=== PATIENT | female | born 1930 | race Caucasian/White ===

== ENCOUNTER 2017-10-26 08:06 | Inpatient (IN) | payer MEDICARE, OTHER ==
[~2017-10-26] VITALS: Ht 170.2 cm; Wt 78.9 kg
[2017-10-26] VITALS (8 sets, daily range): BP systolic 145–192; BP diastolic 60–91
[~2017-10-26 08:06] MED LIST: ACETAMINOPHEN-1 EAC1 PO; AMLODIPINE BESY10 MG PO; ARICEPT 5 MG TAB5 MG PO; ASPIRIN81 M2 PO; AZITHROMYCIN 2250 MG PO; B2; CARAFATE 1 GM TA1 GM PO; CARBINOXAMINE MA4 MG PO; CATAPRES-TTS 10.1 MG PO; CATAPRES0.1 MG PO; CELEBREX 200 M200 M1 PO; CEPHALEXIN 500500 M3 PO; CLONIDINE HCL0.2 M2 PO; CLONIDINE0.1; CLONIDINE0.1 PO; COLACE100 MG PO; COUMADIN 2.5MG2.5 M1; COUMADIN 2.5MG2.5 M1 PO; COUMADIN 5 MG TA5 M1; FELODIPINE ER2.5 MG; INDAPAMIDE2.5 MG PO; IRON325 PO; ISOSORBIDE DINI20 M1 PO; JANTOVEN5 MG PO; KLOR-CON 1010 MEQ PO; LASIX 20 MG TAB20 MG; LASIX 40 MG TAB40 M2 PO; LEXAPRO 10 MG T10 M1 PO; LIPITOR20 MG PO; MAGNESIUM400 MG PO; MAGOX 400400 MG PO; MINOCIN100 MG PO; MIRALAX17 GM PO; MIRALAX255 GM PO; NORVASC 2.5 MG2.5 M1 PO; NORVASC5 MG PO; PALGIC; PANTOPRAZOLE SO40 M1 PO; PAROXETINE 20 MG PO; PREDNISONE 10 M10 MG PO; PROTONIX40 M1 PO; PROTONIX40 M2 PO; REMERON15 MG PO; SPIRONOLACTONE25 M1; SYSTANE 0.3-0.1 EACH OPHTHALMIC; VITAMIN B-12500 MCG PO; VITAMIN D2000 UNI1 PO; XANAX; XANAX 0.5 MG0.5 M1 PO; XANAX1 MG PO; XYZAL5 MG PO; ZANTAC 150MG T150 MG PO
[2017-10-26] MEDS ORDERED: COUMADIN 5 MG TA5 M1 PO (08:19)
[2017-10-26] MEDS ORDERED: OXYBUTYNIN 5 MG5 M2 PO (08:19)
[2017-10-26] MEDS ORDERED: ACETAMINOPHEN-1 EAC1 PO (08:20)
[2017-10-26] MEDS ORDERED: IRON325 PO (08:20)
[2017-10-26] MEDS ORDERED: VITAMIN D3400 UNIT PO (08:20)
[2017-10-26] MEDS ORDERED: OMEPRAZOLE40 MG PO (08:22)
[2017-10-26] MEDS ORDERED: XANAX1 MG PO (08:22)
[2017-10-26] MEDS ORDERED: DOK100 MG PO (08:22)
[2017-10-26] MEDS ORDERED: PRILOSEC 20 MG20 MG PO (08:22)
[2017-10-26] MEDS ORDERED: GAS-X125 M1 PO (08:23)
[2017-10-26] MEDS ORDERED: ZANTAC 150MG T150 MG PO (08:23)
[2017-10-26] MEDS ORDERED: TUMS PO (08:23)
[2017-10-26 08:28] LABS: ABSOLUTE BASOPHILS 0.1 thou/uL (0.0-0.2); ABSOLUTE EOSINOPHILS 0.1 thou/uL (0.0-0.7); ABSOLUTE MONOCYTES 0.5 thou/uL (0.0-1.2); ABSOLUTE NEUTROPHILS 2.6 thou/uL (1.6-8.1); EOSINOPHILS 2.2 %; HEMATOCRIT 41.5 % (37.0-47.0); HEMOGLOBIN 13.9 gm/dL (12.0-15.0); LYMPHOCYTES 37.7 %; MCH 34.4 pg (26.0-34.0); MCHC 33.5 g/dL (28.0-37.0); MCV 102.7 fL (80.0-100.0); MONOCYTES 9.2 %; MPV 7.3 fl. (7.2-11.1); NUCLEATED RBCS 0 /100WBC; PLATELET COUNT* 187 thou/uL (150-400); POLYS 49.9 %; RBC 4.04 mil/uL (4.20-5.00); RDW-CV 12.7 % (10.5-14.5); WBC 5.2 thou/uL (4.0-11.0)
[2017-10-26 08:35] LABS: ANION GAP 5 mmol/L (7-16); BUN 15 mg/dL (7-18); CHLORIDE 98 mmol/L (98-107); CO2 31 mmol/L (21-32); GLUCOSE 100 mg/dL (70-99); POTASSIUM 3.1 mmol/L (3.5-5.1); SODIUM 134 mmol/L (136-145)
[2017-10-26 08:38] LABS: APTT 42.2 Seconds (25.0-31.3); INR 2.7; PROTIME 27.3 Seconds (9.20-11.50)
[2017-10-26 08:53] LABS: ALBUMIN 3.9 g/dL (3.4-5.0); ALKALINE PHOSPHATASE 100 U/L (46-116); CK-MB MASS 0.5 ng/mL (<0.5-3.6); LIPASE 61 U/L (73-393); MAGNESIUM 1.7 mg/dL (1.8-2.4); NT-PRO BRAIN NAT PEPTIDE 2866 pg/mL (<300); SGOT 23 U/L (15-37); SGPT 21 U/L (30-65); TOTAL BILIRUBIN 0.6 mg/dL (<0.1-1.0); TOTAL PROTEIN 8.1 g/dL (6.4-8.2); TROPONIN-I LEVEL <0.06 ng/mL (<0.06)
[2017-10-26 10:23] LABS: CALCIUM 9.1 mg/dL (8.5-10.1); POTASSIUM 3.9 mmol/L (3.5-5.1)
--- NOTE | 2017-10-26 16:34 | 2DMMODE ---
[place] [address] 2 D/M-MODE ECHOCARDIOGRAM Name: QIANA BLANCO Room: [address] IN [facility]#: [id number] Admission: 10/26/17 Attend Phys: Adelso Chow Discharge: Date of : 34 Date of Service: 10/26/17 1634 Report #: [id number] THIS REPORT FOR: //name// APPROVED REPORT Study performed: 10/26/2017 15:41:15 EXAM: Comprehensive 2D, Doppler, and color-flow Echocardiogram Patient Location: In-Patient Room #: [facility] Status: routine BSA: 1.90 HR: 60 bpm BP: 179/76 mmHg Rhythm: NSR Other Information Study Quality: Good Indications Congestive Heart Failure Pacemaker Chest Pain 2D Dimensions LVEF(%): 48.52 (>50%) IVSd: 10.43 (7-11mm) LVOT Diam: 22.28 (18-24mm) LVDd: 54.34 mm PWd: 9.78 (7-11mm) Ascending Ao: 33.83 (22-36mm) LVDs: 40.91 (25-40mm) Aortic Root: 29.96 mm Chávez's LVEF: 48.52 % Volumes Left Atrial Volume (Systole) LA ESV Index: 67.50 mL/m2 Aortic Valve AoV Peak Slade.: 1.99 m/s AO Peak Gr.: 15.89 mmHg LVOT Max P.07 mmHg AO Mean Gr.: 7.80 mmHg LVOT Mean P.90 mmHg LVOT Max V: 1.01 m/s AO V2 VTI: 39.93 cm LVOT Mean V: 0.62 m/s DARVIN (VTI): 2.08 cm2 LVOT V1 VTI: 21.34 cm AI [place]: 2.11 m/s2 [place] [address] 2 D/M-MODE ECHOCARDIOGRAM Name: QIANA BLANCO Room: [address] IN .R.#: [id number] Admission: 10/26/17 Attend Phys: Adelso Chow Discharge: Date of : 34 Date of Service: 10/26/17 1634 Report #: [id number] AI PHT: 556.88 ms Mitral Valve MV Decel. Time: 208.90 ms MV PHT: 60.58 ms MVA (PHT): 3.63 cm2 TDI Medial E' Slade.: 0.08 m/s Lateral E' Slade.: 0.10 m/s Pulmonary Valve PV Peak Slade.: 0.88 m/s PV Peak Gr.: 3.13 mmHg Tricuspid Valve RAP Estimate: 5.00 mmHg TR Peak Gr.: 29.43 mmHg RVSP: 34.43 mmHg PA Pressure: 34.43 mmHg Left Ventricle The left ventricle is normal size. There is normal LV segmental wall motion. Paradoxical septal motion consistent with paced rhythm. Moderate concentric left ventricular hypertrophy. Left ventricular systolic function is mildly decreased. LVEF is 50%. The left ventricular diastolic function is normal. Right Ventricle The right ventricle is normal size. The right ventricular systolic function is normal. Pacemaker lead is present in the right ventricle. Atria Left atrium is severely dilated. Right atrium is dilated. Aortic Valve Mild aortic valve sclerosis. Mild aortic regurgitation. Mild aortic stenosis. Mitral Valve There is mitral annular calcification. Mild mitral regurgitation. No evidence of mitral valve stenosis. Tricuspid Valve The tricuspid valve is normal in structure. Mild tricuspid regurgitation. Mild pulmonary hypertension[place] [address] 2 D/M-MODE ECHOCARDIOGRAM Name: QIANA BLNACO Room: [address] IN [facility]#: [id number] Admission: 10/26/17 Attend Phys: Adelso Chow Discharge: Date of : 34 Date of Service: 10/26/17 1634 Report #: [id number] The pulmonary valve is normal in structure. Trace pulmonic regurgitation. Great Vessels The aortic root is normal in size. IVC is dilated and collapses <50% with inspiration. Pericardium There is no pericardial effusion. <Conclusion> LVEF is 50%. Moderate concentric left ventricular hypertrophy. There is normal LV segmental wall motion. There is normal LV segmental wall motion. Paradoxical septal motion consistent with paced rhythm. Mild aortic stenosis. Mild aortic regurgitation. Mild mitral regurgitation. <ELECTRONICALLY SIGNED> By: Eligio Eagle MD, FACC 10/26/17 1634 1634 1634 Eligio Eagle MD, FACC /INF
--- NOTE | 2017-10-26 16:48 | EKG ---
[place] [address] ELECTROCARDIOGRAM REPORT Name: QIANA BLANCO Room: [address] ADM IN M.R.#: [id number] Admission: 10/26/17 Attend Phys: Adelso Weathers, Discharge: Date of : 32 Report #: [id number] THIS REPORT FOR: //name// [facility] ED Test Date: 2017-10-26 Test Time: 08:11:00 Pat Name: QIANA BLANCO Department: Room: [facility] Gender: F Jack Winder: Rosa M CHRISTIE : 1930 Requested By: Gallo Shaikh Order Number: [id number] MD: Eligio Eagle Measurements Intervals [place] Rate: 67 P: CO: QRS: 1 QRSD: 102 T: -69 QT: 448 QTc: 473 Interpretive Statements Afib/flut and V-paced complexes No further rhythm analysis attempted due to paced rhythm LVH with secondary repolarization abnormality Prolonged QT interval Compared to ECG 12/22/2014 06:24:08 Prolonged QT interval now present Electronically Signed On 10-26-2017 16:48:00 CDT by Eligio Eagle [email or web address] <ELECTRONICALLY SIGNED> By: Eligio Eagle MD, FAC 10/26/17 1648 08 0811 Eligio Eagle MD, FAC /EPI
[2017-10-27] VITALS: BP 116/54; BP 127/62
[2017-10-27 04:00] VITALS: BP 157/78
[2017-10-27 04:52] LABS: HEMATOCRIT 37.3 % (37.0-47.0); HEMOGLOBIN 12.5 gm/dL (12.0-15.0); MCH 34.7 pg (26.0-34.0); MCHC 33.6 g/dL (28.0-37.0); MCV 103.4 fL (80.0-100.0); MPV 7.4 fl. (7.2-11.1); RBC 3.61 mil/uL (4.20-5.00); RDW-CV 12.6 % (10.5-14.5); WBC 6.2 thou/uL (4.0-11.0)
[2017-10-27 05:09] LABS: ALBUMIN 3.2 g/dL (3.4-5.0); ALKALINE PHOSPHATASE 85 U/L (46-116); ANION GAP 1 mmol/L (7-16); BUN 18 mg/dL (7-18); CALCIUM 8.8 mg/dL (8.5-10.1); CHLORIDE 101 mmol/L (98-107); CO2 36 mmol/L (21-32); GLUCOSE 96 mg/dL (70-99); MAGNESIUM 1.6 mg/dL (1.8-2.4); POTASSIUM 3.4 mmol/L (3.5-5.1); SGOT 17 U/L (15-37); SGPT 18 U/L (30-65); SODIUM 138 mmol/L (136-145); TOTAL BILIRUBIN 0.4 mg/dL (<0.1-1.0); TOTAL PROTEIN 6.7 g/dL (6.4-8.2); TROPONIN-I LEVEL <0.06 ng/mL (<0.06)
[2017-10-27 08:00] VITALS: BP 152/71
[2017-10-27 13:01] VITALS: BP 136/64
[2017-10-27 16:00] VITALS: BP 140/93
[2017-10-27 20:00] VITALS: BP 168/80
[2017-10-28] VITALS: BP 138/69
[2017-10-28 04:00] VITALS: BP 131/64
[2017-10-28 04:46] LABS: HEMATOCRIT 36.3 % (37.0-47.0); HEMOGLOBIN 12.3 gm/dL (12.0-15.0); MCH 34.6 pg (26.0-34.0); MCHC 33.8 g/dL (28.0-37.0); MCV 102.4 fL (80.0-100.0); MPV 7.4 fl. (7.2-11.1); RBC 3.54 mil/uL (4.20-5.00); RDW-CV 12.9 % (10.5-14.5); WBC 5.4 thou/uL (4.0-11.0)
[2017-10-28 05:07] LABS: CALCIUM 8.6 mg/dL (8.5-10.1); CREATININE 1.1 mg/dL (0.6-1.3); MAGNESIUM 1.5 mg/dL (1.8-2.4)
[2017-10-28 08:00] VITALS: BP 160/70
[2017-10-28 12:28] VITALS: BP 135/60
[2017-10-28 16:02] VITALS: BP 138/60
[2017-10-28 16:36] LABS: INR 1.9; PROTIME 19.5 Seconds (9.20-11.50)
[2017-10-28 20:00] VITALS: BP 142/74
[2017-10-29] VITALS: BP 136/68
[2017-10-29 04:00] VITALS: BP 150/76
[2017-10-29 07:59] VITALS: BP 150/73
[2017-10-29 11:52] VITALS: BP 134/71
[2017-10-29 16:00] VITALS: BP 127/58
--- NOTE | 2017-10-29 16:21 | CARDNUC ---
[place] [address] CARDIAC NUCLEAR IMAGING REPORT Name: QIANA CARTER Room: [address] IN [facility]#: [id number] Admission: 10/26/17 Attend Phys: Adelso Chow Discharge: Date of : 34 Date of Service: 10/29/17 1620 Report #: [id number] THIS REPORT FOR: //name// APPROVED REPORT Study performed: 10/27/2017 09:19:00 Indication: Chest pain, Palpitations Patient Location: In-Patient Room #: [facility] Stress Tech: Pau Massey Stress Nurse: Sneha Watters RN Ht: 5 ft 7 in Wt: 171 lbs BSA: 1.89 m2 BMI: 26.77 Medical History Medical History: Chest pain, SSS, Stroke/TIA, CKD, HTN Medications: Clonidine, Norvasc, Cozaar Allergies: Sulfa ABT, MG OX, Doxycycline, Donepezil Cardiac Risk Factors: Age, HTN, FHX of CAD Previous Cardiac Procedures: NONE Pretest Chest Pain Characteristics: No chest pain Exercise History: Sedentary Physical Disabilities: Generalized weakness, fall risk, cane. Resting Data Rest SPECT myocardial perfusion imaging was performed in supine position 30 minutes following the intravenous injection of 11.0 mCi of Tc-99m Sestamibi. Time of rest injection: 12:00 The images were gated to evaluate regional wall motion and calculate left ventricular ejection fraction. Administration Route: IV Administration Site: Left Hand Pharmacologic Stress Pharmacologic stress test was performed by injecting Regadenoson 0.4 mg IV push over 10-15 seconds immediately followed by the intravenous injection of 35.7 mCi of Tc-99m Sestamibi. Time of stress injection: 13:40 Administration Route: IV Administration Site: Left Hand Heart Rate at time of stress injection: 62 [place] [address] CARDIAC NUCLEAR IMAGING REPORT Name: QIANA CARTER Room: [address] IN ..#: [id number] Admission: 10/26/17 Attend Phys: Adelso Chow Discharge: Date of : 34 Date of Service: 10/29/17 1620 Report #: [id number] Gated Stress SPECT was performed 40 minutes after stress injection. The images were gated to evaluate regional wall motion and calculate left ventricular ejection fraction. Stress Test Details Stress Test: Pharmacologic stress testing performed using 0.4 mg of regadenoson per 5 mL given IV over 10 seconds. Reason for pharmacologic stress test: physical limitation. HR Max Heart Rate (APMHR): 135 bpm Resting HR: 60 bpm Target HR (85% APMHR): 114 bpm Max HR Achieved: 62 bpm % of APMHR: 45 Recovery HR: 66 bpm BP Resting BP: 124/61 mmHg Recovery BP: 141/72 mmHg ECG Resting ECG: atrial fibrillation, left ventricular hypertrophy with repolarization abnormalities and occasional ventricular pacing Stress ECG: atrial fibrillation, left ventricular hypertrophy with repolarization abnormalities and occasional ventricular pacing ST Change: None Arrhythmia: None Recovery ECG: atrial fibrillation, left ventricular hypertrophy with repolarization abnormalities and occasional ventricular pacing Recovery ST Change: None Recovery Arrhythmia: None Clinical Reason for Termination: Completed protocol Stress Symptoms: Chest tightness, upper left arm pain 3/10. Exercise duration: 0 min 0 sec Exercise capacity: 1.00 METs Nurse Comments Pt reported chest tightness and left arm discomfort during test, Dr. Brandon notified and he responded and saw Pt and EKG. Test continued. Pt required extra time and caffeine but symptoms resolved [place] [address] CARDIAC NUCLEAR IMAGING REPORT Name: QIANA CARTER Room: [address]#: [id number] Admission: 10/26/17 Attend Phys: Adelso Chow Discharge: Date of : 32 Date of Service: 10/29/17 1620 Report #: [id number] Stress ECG Conclusion The baseline 12-lead EKG shows atrial fibrillation. There is occasional ventricular pacing noted. [place] complexes showed left ventricular hypertrophy with T-wave inversion consistent with repolarization abnormality. There were no stress-induced related changes noted. Study Quality Study: Good Artifact: Mild Breast artifact Study Data At rest, the left ventricular ejection fraction was 48%.. Post stress, the left ventricular ejection was 53%.. TID = 0.96. Perfusion Perfusion images obtained at rest show mild photopenia in the anterior wall likely due to breast attenuation artifact. Post stress perfusion images show uniform uptake of the radioisotope throughout the myocardium. There were no defects that would suggest infarct or ischemia. Wall Motion Normal left ventricular wall motion. Nuclear Conclusion ECG Findings: non-diagnostic Clinical Findings: equivocal Nuclear Findings: negative for ischemia Exercise Capacity: not assessed Left Ventricular Function: normal Risk Study: low Perfusion images show no defect to suggest infarct or ischemia. Left ventricular systolic motion appears normal. This is a low risk study. Niki is Dr. Mendieta: Testicular take care of Mr. HakeemJ Alex Carter stress test was normal <Conclusion> The baseline 12-lead EKG shows atrial fibrillation. There is occasional ventricular pacing noted. [place] complexes showed left ventricular hypertrophy with T-wave [place] [address] CARDIAC NUCLEAR IMAGING REPORT Name: QIANA CARTER Room: [address] IN M.R.#: [id number] Admission: 10/26/17 Attend Phys: Adelso Chow Discharge: Date of : 34 Date of Service: 10/29/17 1620 Report #: [id number] repolarization abnormality. There were no stress-induced related changes noted. <ELECTRONICALLY SIGNED> By: Del Mendieta MD, FACC 10/29/171619 19 19 Del Mendieta MD, FACC /INF
[2017-10-29] MEDS ORDERED: CLARITIN10 MG PO (16:29)
[2017-10-29] MEDS ORDERED: COZAAR 25 MG TA25 M1 PO (16:30)
--- NOTE | 2017-11-04 13:03 | CON ---
[address] [address] CONSULTATION Name: QIANA BLANCO Room: [address] IN M.R.#: [id number] Admission: 10/26/17 Attend Phys: Adelso Weathers, Discharge: 10/29/17 Date of : 32 Report #: [id number] THIS REPORT FOR: //name// CC: Adelso Carrillo INPATIENT CONSULTATION PRIMARY ENERGY CONSERVATION REPRESENTATIVE: Sumeet Brandon M.D., [facility]. PRIMARY CARE DOCTOR: Yamil Carrillo M.D. CHIEF COMPLAINT: Chest pressure and shortness of breath. HISTORY OF PRESENT ILLNESS: The patient is an 87-year-old woman who was seen in our practice for atrial arrhythmias and a permanent pacemaker, has had 2 discrete episodes of chest pressure, was associated with feelings of shortness of breath at nighttime. She had another episode this morning and had to go to the Emergency Room to get it checked out. Her episode lasts anywhere from 5-30 minutes long, and it is associated with some bilateral shoulder discomfort. It is not necessarily exertional. She also admits to having weight gain, probably 3-4 pounds over the last several days. She is anticoagulated with warfarin and presents with a therapeutic INR. She is on this because of prior history of CVA and in the setting of atrial fibrillation. She has a history of GERD, but denies any GI bleeding, symptoms of hematemesis, melena or abdominal pain. She presents mildly hypertensive. PAST MEDICAL HISTORY: She has a history of permanent pacemaker implanted in 2012, a [employer] device. She has a single-chamber device. She is in permanent AFib. She has a history of prior remote CVA. She is fully anticoagulated with warfarin. She has a history of hypertension. She was evaluated with an MPI in 2014, which was negative for ischemia. She has GERD, followed by Dr. Erickson. She has anxiety. MEDICATIONS: Her home medications include the following: Tylenol p.r.n., Xanax p.r.n., amlodipine 5 mg daily, calcium carbonate, vitamin B12, Lexapro 10 mg daily, iron, Lasix 20 mg daily, Remeron daily, omeprazole 40 mg daily, potassium chloride 20 mEq daily, ranitidine and other supplements and warfarin 5 [place] [address] CONSULTATION Name: FRANCISQIANA Pham Room: [address]#: [id number] Admission: 10/26/17 Attend Phys: Adelso Weathers, Discharge: 10/29/17 Date of : 32 Report #: [id number] REVIEW OF SYSTEMS: GASTROINTESTINAL: No hematemesis or melena. GENITOURINARY: No dysuria or hematuria. PULMONARY: Denies any cough. GENERAL: No fevers or chills. CARDIOVASCULAR: Positive chest pressure. Positive dyspnea with exertion. Positive orthopnea. Positive PND. MUSCULOSKELETAL: Positive edema. No falls. NEUROLOGIC: No seizures. EYES: Denies any blurred vision or loss of vision. THROAT: Denies any dysphagia. PHYSICAL EXAMINATION: VITAL SIGNS: As above, she presented hypertensive. Her blood pressure is in the 180s over 70s systolic, pulse is in the 60s, V paced. Oxygen saturation on 2 liters is 96%. GENERAL: This is a pleasant elderly female. She is somewhat of a poor historian, but she is in no apparent distress. HEENT: Eyes, EOMs intact. No facial asymmetry. NECK: Supple. No jugular venous distention. CARDIOVASCULAR EXAMINATION: Regular. I cannot hear a murmur, rub or gallop. LUNGS: There are bilateral rales. ABDOMEN: Nontender. EXTREMITIES: There is 1+ pretibial edema bilaterally. SKIN: Warm and dry. PSYCHIATRIC: The patient has appropriate mood and affect. NEUROLOGIC: There are no focal deficits. RADIOGRAPHIC DATA: Electrocardiogram demonstrates atrial fibrillation underlying in a V-paced rhythm. Hemoglobin is 13.9, white blood count is 5.2 and platelet count is 187,000. Sodium is 136, potassium is 3.9, chloride is 100, BUN is 16 and creatinine is 1.0. INR is 2.7. Chest x-ray shows cardiomegaly and mild right infrahilar density, most likely atelectasis. IMPRESSION AND PLAN: 1. Acute diastolic congestive heart failure. I will place her on IV diuretics. We will continue with aggressive blood pressure management. We will check an echocardiogram to reassess LV function. Historically, it has been normal. 2. Atrial fibrillation/atrial flutter. She is on a rate control strategy and we will continue with current medical therapy. 3. Sick sinus syndrome, status post permanent pacemaker. She has had recent device checks and it appears to be functioning normally. 4. Oral anticoagulation, adequate. She has a history of cerebrovascular accident and remains a high stroke risk with a CHADS-VASc score of over [address] [address] CONSULTATION Name: QIANA BLANCO Room: [address] IN .R.#: [id number] Admission: 10/26/17 Attend Phys: Adelso Weathers, Discharge: 10/29/17 Date of : 32 Report #: [id number] she will continue with warfarin inpatient. 5. Hypertension. We will titrate her medications. <ELECTRONICALLY SIGNED> By: Del Mendieta MD, FACC 11/04/17 1303 1138 [id number] Eagle MD, FACC /nt
== END 2017-10-29 18:32 | DRG 291 ==
LOC: M.ERS 08:06 → M.TBA-ER 09:07 → M.2W 09:07
PROVIDERS: Family Medicine; ADMIT Family Medicine
DX: I13.0 Hypertensive heart and chronic kidney disease with heart failure and stage 1 through stage 4 chronic kidney disease, or unspecified chronic kidney disease (principal); J15.9 Unspecified bacterial pneumonia; I50.31 Acute diastolic (congestive) heart failure; I48.92 Unspecified atrial flutter; J98.11 Atelectasis; I16.0 Hypertensive urgency; I20.9 Angina pectoris, unspecified; N18.9 Chronic kidney disease, unspecified; I35.0 Nonrheumatic aortic (valve) stenosis; F41.9 Anxiety disorder, unspecified; E83.42 Hypomagnesemia; D53.9 Nutritional anemia, unspecified; E87.6 Hypokalemia; K21.9 Gastro-esophageal reflux disease without esophagitis; I48.91 Unspecified atrial fibrillation; I49.5 Sick sinus syndrome; E78.5 Hyperlipidemia, unspecified; Z95.0 Presence of cardiac pacemaker; Z86.73 Personal history of transient ischemic attack (TIA), and cerebral infarction without residual deficits; Z90.49 Acquired absence of other specified parts of digestive tract; Z79.01 Long term (current) use of anticoagulants; Z79.899 Other long term (current) drug therapy; Z88.2 Allergy status to sulfonamides; Z88.8 Allergy status to other drugs, medicaments and biological substances; Z82.49 Family history of ischemic heart disease and other diseases of the circulatory system

== ENCOUNTER 2017-11-13 17:58 | Inpatient (IN) | payer MEDICARE, OTHER ==
[~2017-11-13] VITALS: Ht 170.2 cm; Wt 83.0 kg
[~2017-11-13 17:58] MED LIST changes: +CLARITIN10 MG PO; +COUMADIN 5 MG TA5 M1 PO; +COZAAR 25 MG TA25 M1 PO; +DOK100 MG PO; +GAS-X125 M1 PO; +OMEPRAZOLE40 MG PO; +OXYBUTYNIN 5 MG5 M2 PO; +PRILOSEC 20 MG20 MG PO; +TUMS PO; +VITAMIN D3400 UNIT PO
[2017-11-13 18:05] VITALS: BP 167/71
[2017-11-13] MEDS ORDERED: JANTOVEN1 MG PO (18:14)
[2017-11-13] MEDS ORDERED: LASIX 20 MG TAB20 MG PO (18:19)
[2017-11-13] MEDS ORDERED: TYLENOL EXTRA500 MG PO (18:20)
[2017-11-13 18:27] LABS: ABSOLUTE EOSINOPHILS 0.1 thou/uL (0.0-0.7); ABSOLUTE LYMPHOCYTES 2.3 thou/uL (0.8-5.3); ABSOLUTE MONOCYTES 0.7 thou/uL (0.0-1.2); ABSOLUTE NEUTROPHILS 3.3 thou/uL (1.6-8.1); BASOPHILS 0.6 %; EOSINOPHILS 2.1 %; HEMOGLOBIN 11.6 gm/dL (12.0-15.0); LYMPHOCYTES 35.9 %; MCH 34.1 pg (26.0-34.0); MCHC 33.2 g/dL (28.0-37.0); MCV 102.8 fL (80.0-100.0); MONOCYTES 10.5 %; MPV 7.6 fl. (7.2-11.1); NUCLEATED RBCS 0 /100WBC; PLATELET COUNT* 179 thou/uL (150-400); POLYS 50.9 %; RBC 3.41 mil/uL (4.20-5.00); RDW-CV 12.5 % (10.5-14.5); WBC 6.5 thou/uL (4.0-11.0)
[2017-11-13 18:33] LABS: ANION GAP 3 mmol/L (7-16); BUN 15 mg/dL (7-18); CALCIUM 8.6 mg/dL (8.5-10.1); CHLORIDE 97 mmol/L (98-107); CO2 32 mmol/L (21-32); CREATININE 1.2 mg/dL (0.6-1.3); GLUCOSE 102 mg/dL (70-99); POTASSIUM 3.7 mmol/L (3.5-5.1); SODIUM 132 mmol/L (136-145)
[2017-11-13 18:35] LABS: APTT 41.1 Seconds (25.0-31.3); INR 1.7; PROTIME 16.9 Seconds (9.20-11.50)
[2017-11-13 18:49] LABS: ALBUMIN 3.8 g/dL (3.4-5.0); ALKALINE PHOSPHATASE 121 U/L (46-116); CK-MB MASS 0.5 ng/mL (<0.5-3.6); LIPASE 49 U/L (73-393); NT-PRO BRAIN NAT PEPTIDE 4449 pg/mL (<300); SGOT 25 U/L (15-37); SGPT 36 U/L (30-65); TOTAL BILIRUBIN 0.4 mg/dL (<0.1-1.0); TOTAL PROTEIN 7.6 g/dL (6.4-8.2); TROPONIN-I LEVEL <0.06 ng/mL (<0.06)
[2017-11-13 19:42] VITALS: BP 141/60
[2017-11-13 20:00] VITALS: BP 138/70
[2017-11-13 23:55] VITALS: BP 114/51
[2017-11-14] VITALS (7 sets, daily range): BP systolic 123–164; BP diastolic 49–70
[2017-11-14 04:56] LABS: MCH 34.7 pg (26.0-34.0); MCHC 33.4 g/dL (28.0-37.0); MCV 103.8 fL (80.0-100.0); MPV 7.5 fl. (7.2-11.1); RBC 3.18 mil/uL (4.20-5.00); RDW-CV 12.5 % (10.5-14.5); WBC 4.3 thou/uL (4.0-11.0)
--- NOTE | 2017-11-14 05:00 | NUR ---
PT ADMITTED ON TELE FLOOR AR AROUND 1930. ACCOMPANIED KASSIDY NURSE ON A STRETCHER. ALERT AWAKE ORIENTED X4 , V PACED ON THE COMPANY DOCTOR. O2 2 L NC , SATURATION IS 97%. PT COMPLAINS OF GENERALIZED PAIN , CODEINE ADMINISTERED ALONG WITH OTHER MED. IV LINE IN LEFT A.C IS PATENT. PT MADE COMFORTABLE. SHE IS NPO AFTER MIDNIGHT FOR CARDIO CONSULT. CARDIO WAS CONTACTED BY CHARGE NURSE FOR CONSULT, MESSAGE WAS LEFT TO ANSWERING SERVICE. ADMISSION HISTORY DONE BY CHARGE NURSE WELL ORDERS. ASSESSEMENT WAS PERFORMED AT BEDSIDE. PT ABLE TO AMBULATE WITH ASSIST TO THE BEDSIDE COMMODE WHERE SHE URINATES. WHEN ASKED ABOUT HER ADVANCE DIRECTIVE ORIENTATION. PT STATES THAT SHE WANTS TO BE DNR. ENCOURAGE TO HAVE HER BRING SINGED PAPER PROOF TO KEEP IN HER CHART. LEGS ARE SWOLLEN, ANS WARM. ERYTHMA IN DRAGAN LOWER EXTREMITIES. RIGHT LEGT APPEARS TO BE MORE SWOLLEN AND PAINFUL. SCANT AMOUNT OF YELLOW DRAINAGE , MORE LIKE A SWEATING APPEARANCE IS SEEN IN RIGHT CALF. WOUND CARE CONSULTED. PICTURES TAKEN AND PLACED IN CHART. LEGS ARE ELEVATED ON PILLOWS. MRSA SWAB PERFORMED WELL AMAEROBIC / AEROBIC CULTURES OF HTE VESCILES PERTAINIG TO RIGHT CALF. NO SCD IS PLACED SINCE WANT TO RULE OUT VTE. PT SLEPT WELL. CALL LIGHT AT REACH. WILL CONTINUE TO MONITOR.
[2017-11-14 05:15] LABS: INR 1.8; PROTIME 18.8 Seconds (9.20-11.50)
[2017-11-14 05:34] LABS: CREATININE 1.1 mg/dL (0.6-1.3); MAGNESIUM 1.8 mg/dL (1.8-2.4); POTASSIUM 3.2 mmol/L (3.5-5.1)
--- NOTE | 2017-11-14 06:36 | NUR ---
MRSA SWAB AND ANAEROBIC/AEROBIC CULTURE COLLECTED AND SENT TO LAB
--- NOTE | 2017-11-14 10:04 | EKG ---
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1930 Requested By: Gallo Shaikh Order Number: [id number] MD: Sumeet Brandon Measurements Intervals [place] Rate: 61 P: 139 FL: 82 QRS: -4 QRSD: 113 T: -66 QT: 494 QTc: 498 Interpretive Statements Ventricular-paced complexes atrial fibrillation left ventricular hypertrophy with repolarization Compared to ECG 10/26/2017 08:11:00 no change Electronically Signed On 11-14-2017 10:04:43 CDT by Sumeet Brandon [email or web address] <ELECTRONICALLY SIGNED> By: Sumeet Brandon MD, [facility] 11/14/17 1004 181 11 Sumeet Brandon MD, [facility] /EPI
--- NOTE | 2017-11-14 10:27 | NUR ---
WOUND CARE NOTE: CONSULT RECEIVED FOR RIGHT LEG CELLULITIS, COMPRESSION. PATIENT PRESENTS WITH RED, HOT TO TOUCH, INFLAMMED AREA TO RIGHT LOWER LEG AT GAITER AREA. DRY, SCABBED AREAS, BELIEVE THESE WERE WEEPING BEFORE. LEFT LEG WITH SLIGHT REDNESS AT GAITER AREA TOO. PALPABLE PEDAL PULSES BILATERALLY. CLEANSED BILATERAL LEGS WITH SOAP AND WATER, PATTED DRY. APPLIED LOTION. MEASURED FOR SIZE F TUBIGRIPS, 34.5 CM AT CALF BILATERALLY. APPLIED DOUBLE LAYER TUBIGRIP. PATIENT TOLERATED WELL. EDUCATED PATIENT ON COMPRESSION THERAPY TO ASSIST WITH HEALING CELLULITIS, COMMUNICATED UNDERSTANDING. RECOMMEND ELEVATE BLE DOUBLE LAYER TUBIGRIP TO BILATERAL LOWER EXTREMITIES
--- NOTE | 2017-11-14 12:30 | NUR ---
MET WITH PT AND SPOUSE TO DISCUSS DC PLANS. PT KNOWN TO CM FROM PREVIOUS HOSPITAL STAY. PT LIVES WITH SPOUSE. SHE JUST DC'D FROM [facility] 2 DAYS PRIOR TO ADMIT. STATED SHE WAS DOING WELL WHEN SHE WENT HOME AND THERAPY HAD 'DONE ALL THEY COULD' SHE WAS AMBULATING WELL AND ABLE TO DO HER OWN ADLS. SHE HAS [facility] HOME [facility] AND WOULD LIKE TO CONTINUE WITH THEM AT DC, CONFIRMED WITH [facility] THERE. THEY WILL NEED NEW ORDERS AT DC. SPOUSE VOICED CONCERN THAT THIS INFECTION BE 'HEALED UP' BEFORE SHE GOES HOME. CM TO FOLLOW
--- NOTE | 2017-11-14 13:12 | NUR ---
ASSUMED CARE OF PATIENT THIS AM AT 0730. PATIENT IS ALERT AND ORIENTED X 4. SHE C/O BILATERAL BELOW THE KNEE PAIN. PATIENT MEDICATED FOR PAIN PER ROUTINE SCHEDULE. PATIENT HAS BEEN ASSISTED UP TO THE BSC FREQUENTLY THROUGHOUT THE DAY. DR VILLEGAS IN TO SEE PATIENT AND ORDERS WERE WRITTEN. MEDICATION ORDERS CHANGED. PATIENT STARTED ON A DIET. TELE MONITOR SHOWS V PACED RHYTHM. WOUND CARE IN TO SEE PATIENT AND RECOMMENDATIONS DISCUSSED. 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 PATIENT ASSISTED UP IN THE CHAIR FOR LUNCH. PATIENT IS PROGRESSING TOWARDS GOALS. NO FALLS OR INJURY.
--- NOTE | 2017-11-14 18:50 | CON ---
[address] [address] CONSULTATION Name: QIANA BLANCO Room: [address] IN M.R.#: [id number] Admission: 11/13/17 Attend Phys: Mann Miranda MD Discharge: Date of : 34 Report #: [id number] THIS REPORT FOR: //name// CC: Mann Carrillo MD DATE OF SERVICE: 11/14/2017 HISTORY OF PRESENT ILLNESS: The patient is an 87-year-old white female who I was asked to see in the hospital today after she was noted to have swollen feet. The history is obtained from the patient as well as some old records. The patient has a long history of hypertension. Previous heart catheterization in 1998 showed normal coronary arteries. She has a history of permanent atrial fibrillation. She apparently was cardioverted years ago, but had recurrent AFib, it was decided aim for rate control only. She has been chronically anticoagulated. She was actually admitted here to [facility] in 2012 when I saw her in consultation. She had a syncopal spell. She was noted to have slow rates of AFib with pauses. I then implanted a single lead pacemaker. She has had no further syncope. She has remained chronically anticoagulated. She was actually just admitted here to [facility] on 10/26/2017 with chest pressure and shortness of breath. She was seen by my partner, Dr. Eagle. She underwent a nuclear stress test 2 weeks ago that showed no reversible defects or ischemia, ejection fraction 53%. It was felt her chest pressure was noncardiac. Echocardiogram 2 weeks ago showed ejection fraction 50%, left ventricular hypertrophy, mild aortic stenosis, and mild mitral regurgitation. The patient was discharged to [facility]. In the [place], she had increasing swelling of her ankles. Her right lower rodriguez was noted to have redness and warmth. She is felt to have cellulitis. She was admitted to the hospital yesterday for further evaluation and treatment. She has had no trauma to her leg. PAST MEDICAL HISTORY: Significant for previous back surgery, lens implant, cholecystectomy, hysterectomy, appendectomy, hypertension. CURRENT MEDICATIONS: Consist of Xanax, amlodipine, clonidine, furosemide, losartan, Remeron, Prilosec, oxybutynin, potassium, ranitidine, warfarin. ALLERGIES: She has no known drug allergies. FAMILY HISTORY: Heart disease runs in the family. SOCIAL HISTORY: She is . She and her live in [place]. No smoking. Rarely drinks alcohol. REVIEW OF SYSTEMS: She apparently had a stroke in the past with some aphasia and right-sided weakness. She has no history of asthma, [place] [address] CONSULTATION Name: QIANA BLANCO Room: [address] IN .R.#: [id number] Admission: 11/13/17 Attend Phys: Mann Miranda MD Discharge: Date of : 32 Report #: [id number] Does have a history of anemia. No history of liver disease, kidney disease, cancer, or psychiatric illness. PHYSICAL EXAMINATION: GENERAL: Revealed an elderly female lying in bed. She appeared in no distress. VITAL SIGNS: Showed a blood pressure of 140/70, pulse 60. She is afebrile. HEENT: She was anicteric, conjunctiva pink. Mucous membranes moist. NECK: Veins nondistended. CHEST: Clear to auscultation. CARDIAC: Regular rate and rhythm, grade 2 systolic ejection murmur. ABDOMEN: Soft. EXTREMITIES: Had pitting edema up to mid tibial area. Dorsalis pedis pulse 2+ bilaterally. SKIN: She had erythema on the right anterior tibial area. It was slightly warm to touch. LABORATORY DATA: Her workup so far, ECG shows what appears to be atrial fibrillation with a paced rhythm. Sodium 140, potassium 3.2, creatinine 1.1. Liver function studies are normal. BNP 4449. Her INR is 1.8. White blood cell count 4.3, hemoglobin 11. IMPRESSION AND RECOMMENDATIONS: 1. Edema. Suspect venous insufficiency. I would recommend IV Lasix. Possibly exacerbated by amlodipine. I would recommend switching from amlodipine to an SHAWN inhibitor for her high blood pressure. 2. Hypertension. The patient has been on clonidine and amlodipine. 3. Cellulitis. 4. Sick sinus syndrome. The patient 100% ventricular paced. 5. Atrial fibrillation. The patient is chronically anticoagulated. I would continue anticoagulation, maintain an INR of 2-3. 6. Previous stroke. <ELECTRONICALLY SIGNED> By: Sumeet Brandon MD, [facility] 11/14/17 1850 0933 [id number] Brandon MD, FACC /nt
[2017-11-15 04:00] VITALS: BP 142/51
[2017-11-15 05:15] LABS: INR 1.9; PROTIME 18.9 Seconds (9.20-11.50)
[2017-11-15 05:19] LABS: HEMATOCRIT 32.1 % (37.0-47.0); HEMOGLOBIN 10.8 gm/dL (12.0-15.0); MCH 34.8 pg (26.0-34.0); MCHC 33.7 g/dL (28.0-37.0); MCV 103.3 fL (80.0-100.0); MPV 7.9 fl. (7.2-11.1); RBC 3.1 mil/uL (4.20-5.00); RDW-CV 12.5 % (10.5-14.5); WBC 4.6 thou/uL (4.0-11.0)
[2017-11-15 05:22] LABS: CALCIUM 8.7 mg/dL (8.5-10.1); CREATININE 1.1 mg/dL (0.6-1.3); MAGNESIUM 1.5 mg/dL (1.8-2.4)
[2017-11-15 05:26] LABS: POTASSIUM 4.4 mmol/L (3.5-5.1)
--- NOTE | 2017-11-15 06:19 | NUR ---
ASSUMED PT CARE REPORT RECEIVED FROM NURSE. PT IS ALERT AWAKE ORIENTED X4. V PACED WITH AFIB ON THE LEAD MILITARY ANALYST. PT DID COMPLAIN OF PAIN AND HER SCHEDULED CODEINE WAS GIVEN. K REPLACEMENT GIVEN. K THIS AM IS NORMAL. MAG LEVEL IS 1.5 . FIRST DOSE OF MAG REPLACEMENT ADMINISTERED. PT STATES " SHE HAD A GOOD NIGHT OF SLEEP". IV ABX GIVEN THROUGHOUT THE NIGHT. TURBIGRIP WRAPPED AROUND DRAGAN LOWER EXTRMITIES. LEGS ARE KEPT ELEVATED. PT GETS UP A FEW TIME TO USE THE BEDSIDE COMMODE. CALL LIGHT AT REACH. BED IN LOWEST POSITION
[2017-11-15 07:41] VITALS: BP 135/61
--- NOTE | 2017-11-15 09:55 | NUR ---
ASSUMED CARE OF PT THIS AM AROUND 0715- KENNEL AIDE IN PLACE ORDERED, V-PACED WITH BBB- UPON ASSESSMENT PT NOTED TO BE RESTING IN BED- PT A&O X4- CONTINENT OF BOWEL AND BLADDER- ASSIST X1 WITH TRANSFERS- LCTA, RESP EVEN AND UN-LABORED- VSS, O2 SAT 92% ON RA- ABDOMEN SOFT/ROUND/NON-TENDER, BS X4 QUADS-LAST BM REPORTED 11/13/17- +1 BLE EDEMA NOTED, LEG ELEAVTION ENCOURAGED- BLE CLEANED WITH WARM H20 AND SOAP, PATTED DRY WITH LOTION APPLIED ANDN TUB TUNA PURSE SEINER INDICATED- PT UP TO BED SIDE RECLINER THIS AM, GOOD PO INTAKE NOTED THIS AM WITH BREAKFAST- IV NOTED TO RIGHT AC INTACT AND SL- MG THIS AM NOTED TO BE 1.5 WITH 1ST DOSE REPLACEMENT REPORTED TO HAVE BEEN GIVEN ON PRIOR SHIFT WITH 2ND DOSE GIVEN THIS AM AT 0911 WITH REDRAW SCHEDULED FOR 1315 THIS SHIFT- PT DENIES ANY C/O PAIN/DISCOMFORT AT THIS TIME- CALL LIGHT AND PERSONAL BELONGINGS WITH IN REACH- HOURLY ROUNDS IN PLACE R/T SAFETY/NEEDS- ALL NEEDS MET AT THIS TIME-[facility]
[2017-11-15 12:00] VITALS: BP 100/54
[2017-11-15 16:00] VITALS: BP 110/51
--- NOTE | 2017-11-15 17:57 | NUR ---
PT CURRENLTY RESTING IN BED- CASTING SORTER IN PLACE ORDERED, V-PACED- IV TO RIGHT AC INTACT- MG NOTED TO BE 1.6 POST PO REPLACEMENT THIS SHIFT AT 1315- IV REPLACEMENT GIVEN WITH REDRAW AT 1715 NOTED TO BE 2.1- PT UP TO CHAIR WITH MEALS, GOOD PO INTAKE NOTED WITH MEALS- DENIES ANY C/O PAIN/DISCOMFORT AT THIS TIME- ALL NEEDS MET AT THIS TIME-[facility]
[2017-11-15 20:05] VITALS: BP 142/74
[2017-11-15 23:36] VITALS: BP 133/63
--- NOTE | 2017-11-15 23:50 | NUR ---
ASSUMED CARE OF PT AT 1900. PT IS ALERT AND ORIENTED. VSS. PERRLA. NO COMPLAINTS OF PAIN. UP WITH 1 ASSIST. PT IS V PACED ON THE TELEMETRY. PT IS RESTING COMFORTABLY IN BED. RESPIRATIONS ARE EVEN AND NONLABORED. WILL CONTINUE TO MONITOR PT.
[2017-11-16 03:55] VITALS: BP 123/52
[2017-11-16 04:42] LABS: INR 1.8; PROTIME 18.7 Seconds (9.20-11.50)
[2017-11-16 08:00] VITALS: BP 128/55
[2017-11-16 12:02] VITALS: BP 111/51
--- NOTE | 2017-11-16 14:23 | NUR ---
CONTINUE TO FOLLOW, WAS ASKED TO MEET WITH SPOUSE THIS AM IN ADMISSIONS. MET WITH HIM, HE ASKED ABOUT 'PLACEMENT' FOR PT. STATES 'SHE WON'T DO ANYTHING AT HOME.' ASSURED HIM THAT SHE HAD PARTICIPATED IN THERAPY. HE STATES SHE WAS AT THE [facility] NOT LONG AGO AND STAYED 5 MONTHS BUT CAME HOME D/T FINANCES. HE STATES HE HAS AN APPT WITH AN ELDER LAW DIET CONSULTANT TO DISCUSS FINANCES AND IS INTERESTED IN FINDING [facility] FOR . DISCUSSED SOME WITH HIM. HE SEEMED SOMEWHAT DISTRACTED. EXPLAINED TO HIM THAT PT WOULD NOT QUALIFY TO RETURN TO SNF AT THIS TIME, TOO HIGH FUNCTIONING. OFFERED NAMES OF PENITENTIARY AND HE STATED 'I'LL JUST FIGURE IT OUT.' IS AGREEABLE TO , UPDATED YESICA/FERNAND[facility] AT HOME THAT PT WILL RETURN HOME TOMORROW. WILL ASK FOR SW TO SEE PT AT HOME AND GIVE SPOUSE 'A PLACE FOR MOM' CONTACT AT [place] ALSO
[2017-11-16 16:00] VITALS: BP 133/52
--- NOTE | 2017-11-16 18:43 | NUR ---
PATIENT RESTING IN BED. UP IN ROOM WITH STANDBY ASSISTANCE AND WALKER USAGE. HOURY ROUNDING COMPLETED FOR PATINET SAFETY AND PATINET IS PROGRESSING TOWARDS GOALS. EXPECTED DISCHARGE IN 24 TO 48 HOURS TO SELF CARE AT [facility].
[2017-11-16 20:00] VITALS: BP 145/57
[2017-11-17] VITALS: BP 93/56
--- NOTE | 2017-11-17 01:27 | NUR ---
PT ALERT ORIENTED. UP TO BR WITH STD BY ASSIST AND WALKER. 2300 TYLENOL WITH CODINE HELD DUE TO PT BEING SEDATED. TELEMETRY SHOWS V-PACED. WILL CONTINUE TO MONITOR.
[2017-11-17 04:00] VITALS: BP 148/70
[2017-11-17 06:03] LABS: ANION GAP < 0 mmol/L (7-16); BUN 16 mg/dL (7-18); CALCIUM 8.3 mg/dL (8.5-10.1); CHLORIDE 100 mmol/L (98-107); CO2 33 mmol/L (21-32); CREATININE 1.1 mg/dL (0.6-1.3); GLUCOSE 90 mg/dL (70-99); INR 1.7; POTASSIUM 4.2 mmol/L (3.5-5.1); PROTIME 17.6 Seconds (9.20-11.50); SODIUM 131 mmol/L (136-145)
[2017-11-17 08:00] VITALS: BP 134/60
--- NOTE | 2017-11-17 08:00 | NUR ---
AM ASSESSMENT COMPLETE, DEFER TO COMPUTER CHARTING. ICT DEVELOPMENT MANAGER TRACKING AFIB. ALERT ORIENTED. DENIES DIZZINESS, SHORTNESS OF BREATH OR ANY DISCOMFORT AT THIS TIME. REPORTING GOING HOME TODAY. CALL LIGHT WITHIN REACH. WILL CONTINUE TO MONITOR.
--- NOTE | 2017-11-17 10:26 | NUR ---
ORDERS NOTED FOR DC HOME WITH HH. CALLED AND FAXED ORDERS TO FERNANDO AT HOME. MET WITH PT AND SPOKE WITH SPOUSE OVER THE PHONE. HE WILL BE HERE AFTER LUNCH TO PICK HER UP.
[2017-11-17] MEDS ORDERED: CEFUROXIME250 MG PO (10:47)
[2017-11-17] MEDS ORDERED: CARVEDILOL3.125 MG PO (10:48)
[2017-11-17 12:18] VITALS: BP 135/53
--- NOTE | 2017-11-17 14:41 | NUR ---
DISCHARGE ORDERS RECEIVED. HEALTH INFORMATION MANAGER AND SALINE LOCK DC'D. EDUCATED ON DISCHARGE ORDERS, VERBALIZED UNDERSTANDING - GIVEN WRITTEN WRITTEN DISCHARGE INSTRUCTIONS FOR REINFORCEMENT TEACHING. ALL PERSONAL BELONGINGS COLLECTED BY PATIENT. DC'D VIA W/C WITH , IN STABLE CONDITION.
== END 2017-11-17 15:06 | disposition home health service (06) | DRG 603 ==
LOC: M.ERS 17:58 → M.TBA-ER 18:41 → M.2W 18:41
PROVIDERS: Family Medicine; ADMIT Internal Medicine
DX: L03.115 Cellulitis of right lower limb (principal); I50.42 Chronic combined systolic (congestive) and diastolic (congestive) heart failure; I13.0 Hypertensive heart and chronic kidney disease with heart failure and stage 1 through stage 4 chronic kidney disease, or unspecified chronic kidney disease; I48.91 Unspecified atrial fibrillation; E78.5 Hyperlipidemia, unspecified; I49.5 Sick sinus syndrome; N18.3 Chronic kidney disease, stage 3 (moderate); F41.8 Other specified anxiety disorders; K21.9 Gastro-esophageal reflux disease without esophagitis; Z87.81 Personal history of (healed) traumatic fracture; Z88.1 Allergy status to other antibiotic agents; Z88.2 Allergy status to sulfonamides; Z88.8 Allergy status to other drugs, medicaments and biological substances; Z86.73 Personal history of transient ischemic attack (TIA), and cerebral infarction without residual deficits; Z79.01 Long term (current) use of anticoagulants; Z90.49 Acquired absence of other specified parts of digestive tract; Z95.0 Presence of cardiac pacemaker; Z90.710 Acquired absence of both cervix and uterus; Z82.49 Family history of ischemic heart disease and other diseases of the circulatory system; Z79.899 Other long term (current) drug therapy; Z23 Encounter for immunization; Z66 Do not resuscitate

== ENCOUNTER 2018-04-18 16:03 | Inpatient (IN) | payer MEDICARE, OTHER ==
[~2018-04-18] VITALS: Ht 170.2 cm; Wt 73.0 kg
--- NOTE | ~2018-04-18 | PROC ---
[address] [address] PROCEDURE REPORT Name: QIANA BLANCO Room: [address] IN M.R.#: [id number] Admission: 04/18/18 Attend Phys: Maci Nichols Discharge: 04/24/18 Date of : 32 Report #: [id number] THIS REPORT FOR: //name// For GI report, please see the Provation report in Perceptive 7 content. By: 0640Medical Records Staff TIEN /TRUDY
[~2018-04-18 16:03] MED LIST changes: +CARVEDILOL3.125 MG PO; +CEFUROXIME250 MG PO; +JANTOVEN1 MG PO; +LASIX 20 MG TAB20 MG PO; +TYLENOL EXTRA500 MG PO
[2018-04-18 16:06] VITALS: BP 169/74
[2018-04-18] MEDS ORDERED: PROZAC 10 MG CA10 MG PO (16:20)
[2018-04-18] MEDS ORDERED: 24HR ALLERGY REL5 MG PO (16:21)
[2018-04-18 16:25] LABS: ABSOLUTE EOSINOPHILS 0.1 thou/uL (0.0-0.7); ABSOLUTE LYMPHOCYTES 1.6 thou/uL (0.8-5.3); ABSOLUTE MONOCYTES 0.7 thou/uL (0.0-1.2); ABSOLUTE NEUTROPHILS 2.9 thou/uL (1.6-8.1); BASOPHILS 0.9 %; EOSINOPHILS 2.5 %; HEMATOCRIT 37.2 % (37.0-47.0); HEMOGLOBIN 12.6 gm/dL (12.0-15.0); LYMPHOCYTES 29.6 %; MCH 34.3 pg (26.0-34.0); MCHC 33.8 g/dL (28.0-37.0); MCV 101.7 fL (80.0-100.0); MONOCYTES 12.3 %; MPV 7.3 fl. (7.2-11.1); NUCLEATED RBCS 0 /100WBC; PLATELET COUNT* 185 thou/uL (150-400); POLYS 54.7 %; RBC 3.66 mil/uL (4.20-5.00); RDW-CV 13.9 % (10.5-14.5); WBC 5.3 thou/uL (4.0-11.0)
[2018-04-18 16:38] LABS: ANION GAP 9 mmol/L (7-16); BUN 13 mg/dL (7-18); CALCIUM 9.1 mg/dL (8.5-10.1); CHLORIDE 98 mmol/L (98-107); CO2 31 mmol/L (21-32); CREATININE 1.1 mg/dL (0.6-1.3); GLUCOSE 120 mg/dL (70-99); POTASSIUM 3.2 mmol/L (3.5-5.1); SODIUM 138 mmol/L (136-145); TROPONIN-I LEVEL <0.06 ng/mL (<0.06)
[2018-04-18 16:40] LABS: ALBUMIN 3.8 g/dL (3.4-5.0); ALKALINE PHOSPHATASE 119 U/L (46-116); LIPASE 49 U/L (73-393); MAGNESIUM 1.6 mg/dL (1.8-2.4); NT-PRO BRAIN NAT PEPTIDE 4577 pg/mL (<300); SGOT 16 U/L (15-37); SGPT 20 U/L (30-65); TOTAL BILIRUBIN 0.4 mg/dL (<0.1-1.0); TOTAL PROTEIN 7.8 g/dL (6.4-8.2)
[2018-04-18 17:19] LABS: INR 2.4; PROTIME 24.5 Seconds (9.20-11.50)
[2018-04-18 19:50] VITALS: BP 150/80
[2018-04-18 20:00] VITALS: BP 122/82
[2018-04-18] MEDS ORDERED: POTASSIUM20 PO (21:49)
[2018-04-18] MEDS ORDERED: SYSTANE GEL EYE10 ML OPHTHALMIC (21:57)
[2018-04-18] MEDS ORDERED: TUMS X-STR300 MG PO (21:57)
[2018-04-18] MEDS ORDERED: TYLENOL EXTRA500 MG PO (21:58)
[2018-04-18 23:00] LABS: CALCIUM 9.5 mg/dL (8.5-10.1); CREATININE 1.1 mg/dL (0.6-1.3); POTASSIUM 3.1 mmol/L (3.5-5.1)
[2018-04-19] VITALS: BP 149/58
[2018-04-19 04:00] VITALS: BP 148/51
[2018-04-19 08:00] VITALS: BP 147/56
--- NOTE | 2018-04-19 10:09 | EKG ---
[place] [address] ELECTROCARDIOGRAM REPORT Name: QIANA BLANCO Room: [address] ADM IN M.R.#: [id number] Admission: 04/18/18 Attend Phys: Maci Nichols Discharge: Date of : 32 Report #: [id number] THIS REPORT FOR: //name// [facility] ED Test Date: 2018-04-18 Test Time: 16:07:32 Pat Name: QIANA BLANCO Department: Room: [facility] Gender: F Meat Washer: : 1930 Requested By: Yaneth Carrillo Order Number: [id number] MD: Sumeet Brandon Measurements Intervals [place] Rate: 74 P: RI: QRS: -16 QRSD: 106 T: -70 QT: 450 QTc: 500 Interpretive Statements Atrial fibrillation with occasional paced beat nonspecific t wave changes Borderline prolonged QT interval Compared to ECG 11/13/2017 18:12:08 no change Electronically Signed On 04-19-2018 10:08:58 PBX WIRE CHIEF by Sumeet Brandon [email or web address] <ELECTRONICALLY SIGNED> By: Sumeet Brandon MD, [facility] 04/19/18 1008 1607 1607 Sumeet Barndon MD, [facility] /EPI
[2018-04-19 11:49] VITALS: BP 164/62
--- NOTE | 2018-04-19 13:15 | 2DMMODE ---
[place] [address] 2 D/M-MODE ECHOCARDIOGRAM Name: QIANA BLANCO Room: [address] IN [facility]#: [id number] Admission: 04/18/18 Attend Phys: Elmer Edmonds Discharge: Date of : 34 Date of Service: 04/19/18 1315 Report #: [id number] THIS REPORT FOR: //name// APPROVED REPORT Study performed: 04/19/2018 10:53:46 EXAM: Comprehensive 2D, Doppler, and color-flow Echocardiogram Patient Location: In-Patient Room #: 229 Status: routine BSA: 1.92 HR: 60 bpm BP: 147/56 mmHg Rhythm: NSR Other Information Study Quality: Good Indications Dyspnea Pacemaker Chest Pain 2D Dimensions IVSd: 12.19 (7-11mm) LVOT Diam: 19.57 (18-24mm) LVDd: 48.88 mm PWd: 12.92 (7-11mm) Ascending Ao: 31.66 (22-36mm) LVDs: 37.58 (25-40mm) Aortic Root: 28.23 mm Volumes Left Atrial Volume (Systole) LA ESV Index: 63.90 mL/m2 Aortic Valve AoV Peak Slade.: 2.02 m/s AO Peak Gr.: 16.27 mmHg LVOT Max P.31 mmHg AO Mean Gr.: 9.04 mmHg LVOT Mean P.53 mmHg LVOT Max V: 0.91 m/s AO V2 VTI: 43.81 cm LVOT Mean V: 0.56 m/s DARVIN (VTI): 1.45 cm2 LVOT V1 VTI: 21.12 cm AI Edgar: 2.37 m/s2 AI PHT: 481.49 [place] [address] 2 D/M-MODE ECHOCARDIOGRAM Name: QIANA BLANCO Room: [address] IN .R.#: [id number] Admission: 04/18/18 Attend Phys: Elmer Edmonds Discharge: Date of : 32 Date of Service: 04/19/18 1315 Report #: [id number] Mitral Valve MV Decel. Time: 174.04 ms MV PHT: 50.47 ms MVA (PHT): 4.36 cm2 TDI Medial E' Slade.: 0.07 m/s Lateral E' Slade.: 0.12 m/s Pulmonary Valve PV Peak Slade.: 1.00 m/s PV Peak Gr.: 3.99 mmHg Tricuspid Valve RAP Estimate: 10.00 mmHg TR Peak Gr.: 28.97 mmHg RVSP: 39.00 mmHg PA Pressure: 39.00 mmHg Left Ventricle The left ventricle is normal size. There is normal LV segmental wall motion. Mild concentric left ventricular hypertrophy. Left ventricular systolic function is low normal LVEF is 50-55% The left ventricular diastolic function is normal. Right Ventricle Right ventricle is dilated. The right ventricular systolic function is normal. Pacemaker lead is present in the right ventricle. Atria Left atrium is severely dilated. Right atrium is dilated. Aortic Valve Moderate aortic valve sclerosis. Mild aortic regurgitation. There is no aortic valvular stenosis. Mitral Valve There is mitral annular calcification. Mild mitral regurgitation. No evidence of mitral valve stenosis. Tricuspid Valve The tricuspid valve is normal in structure. Mild tricuspid regurgitation. estimated pa pressure 40 mm Hg Pulmonic Valve The pulmonary valve is normal in structure. Mild [place] [address] 2 D/M-MODE ECHOCARDIOGRAM Name: QIANA BLANCO Room: [address] IN .R.#: [id number] Admission: 04/18/18 Attend Phys: Elmer Edmonds Discharge: Date of : 34 Date of Service: 04/19/18 1315 Report #: [id number] Great Vessels The aortic root is normal in size. IVC is dilated. Pericardium There is no pericardial effusion. <Conclusion> Mild concentric left ventricular hypertrophy. LVEF is 50-55% Left atrium is severely dilated. Moderate aortic valve sclerosis. Mild aortic regurgitation. Mild mitral regurgitation. Mild tricuspid regurgitation. estimated pa pressure 40 mm Hg <ELECTRONICALLY SIGNED> By: Sumeet Brandon MD, FACC 04/19/18 1315 1315 Sumeet Brandon MD, FACC /INF
[2018-04-19 15:39] VITALS: BP 138/61
[2018-04-19 20:00] VITALS: BP 131/57
[2018-04-20 00:45] VITALS: BP 131/56
[2018-04-20 04:55] VITALS: BP 135/63
[2018-04-20 05:41] LABS: CALCIUM 9.2 mg/dL (8.5-10.1); CREATININE 1.1 mg/dL (0.6-1.3); POTASSIUM 4.1 mmol/L (3.5-5.1)
[2018-04-20 08:00] VITALS: BP 149/56
[2018-04-20 11:52] VITALS: BP 136/60
--- NOTE | 2018-04-20 12:02 | EKG ---
[place] [address] ELECTROCARDIOGRAM REPORT Name: QIANA BLANCO Room: [address] ADM IN M.R.#: [id number] Admission: 04/18/18 Attend Phys: Maci Nichols Discharge: Date of : 32 Report #: [id number] THIS REPORT FOR: //name// [facility] Test Date: 2018-04-20 Test Time: 08:26:21 Pat Name: QIANA BLANCO Department: Room: [address] Gender: F Printer Slotter Helper: : 1930 Requested By: Elmer Edmonds Order Number: [id number] Reading MD: Eligio Eagle Measurements Intervals [place] Rate: 66 P: CA: QRS: -4 QRSD: 104 T: -76 QT: 475 QTc: 498 Interpretive Statements Afib/flut and V-paced complexes No further rhythm analysis attempted due to paced rhythm LVH with secondary repolarization abnormality Prolonged QT interval Compared to ECG 04/18/2018 16:07:32 Left ventricular hypertrophy now present Early repolarization now present T-wave abnormality no longer present Electronically Signed On 04-20-2018 12:02:24 HEAD BOYS TENNIS COACH by Eligio Eagle [email or web address] <ELECTRONICALLY SIGNED> By: Eligio Eagle MD, FACC 04/20/18 1202 5 5 Eligio Eagle MD, FAC /EPI
[2018-04-20 17:30] VITALS: BP 139/60
[2018-04-20 20:00] VITALS: BP 159/50
[2018-04-21] VITALS: BP 136/59; BP 139/55
[2018-04-21 05:00] VITALS: BP 151/58
[2018-04-21 08:00] VITALS: BP 159/64
[2018-04-21 12:15] VITALS: BP 145/78
--- NOTE | 2018-04-21 14:11 | EKG ---
[place] [address] ELECTROCARDIOGRAM REPORT Name: QIANA BLANCO Room: [address] ADM IN M.R.#: [id number] Admission: 04/18/18 Attend Phys: Maci Nichols Discharge: Date of : 32 Report #: [id number] THIS REPORT FOR: //name// [facility] Test Date: 2018-04-21 Test Time: 08:08:31 Pat Name: QIANA BLANCO Department: Room: [address] Gender: F Card Room Manager: : 1930 Requested By: Elmer Edmonds Order Number: [id number] Reading MD: Eligio Eagle Measurements Intervals [place] Rate: 60 P: 0 PA: 97 QRS: -65 QRSD: 186 T: 110 QT: 526 QTc: 526 Interpretive Statements Ventricular-paced complexes No further rhythm analysis attempted due to paced rhythm Left bundle branch block Compared to ECG 04/20/2018 08:26:21 Left bundle-branch block now present Atrial fibrillation no longer present Left ventricular hypertrophy no longer present Early repolarization no longer present Prolonged QT interval no longer present Electronically Signed On 04-21-2018 14:11:17 PERCUSSION TUNER by Eligio Eagle [email or web address] <ELECTRONICALLY SIGNED> By: Eligio Eagle MD, [facility] 04/21/18 1411 0808 0808 Eligio Eagle MD, [facility] /EPI
[2018-04-21 16:28] VITALS: BP 137/59
[2018-04-21 20:00] VITALS: BP 157/69
[2018-04-22] VITALS: BP 155/60
[2018-04-22 04:00] VITALS: BP 141/75
[2018-04-22 08:00] VITALS: BP 147/64
[2018-04-22 13:04] VITALS: BP 148/67
[2018-04-22 16:15] VITALS: BP 133/43
[2018-04-22 20:00] VITALS: BP 146/64
[2018-04-23] VITALS (8 sets, daily range): BP systolic 119–169; BP diastolic 53–71
[2018-04-23] MEDS ORDERED: PEPCID20 MG PO (07:54)
[2018-04-23 11:17] LABS: HEMATOCRIT 37.4 % (37.0-47.0); HEMOGLOBIN 12.6 gm/dL (12.0-15.0); MCHC 33.8 g/dL (28.0-37.0); MCV 100.7 fL (80.0-100.0); MPV 7.1 fl. (7.2-11.1); RBC 3.72 mil/uL (4.20-5.00); WBC 4.7 thou/uL (4.0-11.0)
[2018-04-23 11:22] LABS: INR 1.6; PROTIME 16.7 Seconds (9.20-11.50)
[2018-04-24 01:02] VITALS: BP 146/65
[2018-04-24 05:05] VITALS: BP 143/66
[2018-04-24 08:00] VITALS: BP 159/71
[2018-04-24 12:00] VITALS: BP 147/66
--- NOTE | 2018-04-24 12:35 | CON ---
[address] [address] CONSULTATION Name: QIANA BLANCO Room: [address] IN M.R.#: [id number] Admission: 04/18/18 Attend Phys: Maci Nichols Discharge: Date of : 32 Report #: [id number] THIS REPORT FOR: //name// CC: [place] Edmonds DATE OF SERVICE: 04/22/2018 REQUESTING PHYSICIAN: Dr. Elmer Edmonds. REASON FOR CONSULT: Noncardiac chest pain. HISTORY OF PRESENT ILLNESS: This is an 88-year-old female with history of gastroesophageal reflux disease who reports that for the past year, she has been taking Tums on a daily basis. She also reports dyspepsia, gas, bloating and abdominal pain. She takes Coumadin for history of AFib and since hospitalization, she was evaluated for cardiac event as she presented with chest pain. The patient denies any dysphagia, hematochezia, melena, but reports that occasionally may be constipated. PAST MEDICAL HISTORY: Significant for history of heart disease, CHF, AFib, gastroesophageal reflux disease, hypertension, anticoagulation therapy, depression. ALLERGIES: Significant to ARICEPT, DOXYCYCLINE, MAGNESIUM, SULFA. MEDICATIONS: Please refer to hospital MAR. SOCIAL HISTORY: The patient is and lives at home. Denies ever drinking or smoking. FAMILY HISTORY: Significant for coronary artery disease. PHYSICAL EXAMINATION: VITAL SIGNS: Reveals blood pressure of 146/64, respiration is 15, pulse 60, temperature 36.8 centigrade. LUNGS: Clear. CARDIOVASCULAR: Regular rate. ABDOMEN: Soft, tender to palpation in the epigastric region. Bowel sounds are positive. NEUROLOGIC: The patient is alert, oriented x 3. LABORATORY DATA: Reveal WBC of 4.7, hemoglobin 12.6 with platelet of 171. Sodium is 139, potassium 4.1, BUN is 13, creatinine 1.1. [place] [address] CONSULTATION Name: QIANA BLANCO Vero Room: [address]#: [id number] Admission: 04/18/18 Attend Phys: Maci Nichols Discharge: Date of : 32 Report #: [id number] all within normal limits. Lipase is 49. INR is 1.6. IMAGING: Chest x-ray was obtained on admission, which showed no acute cardiopulmonary process. ASSESSMENT AND PLAN: The patient with history of dyspepsia, gas, bloating and persistent gastroesophageal reflux symptoms. We will go ahead and perform an upper endoscopy. At some point, we will consider hydrogen breath test as her symptoms may be consistent with small intestinal bacterial overgrowth, which will make his reflux worse. I will make further recommendation based on his upper endoscopy. <ELECTRONICALLY SIGNED> By: Adeola Feliz MD 04/24/18 1235 1616 0042Fardanay Feliz MD /radha
--- NOTE | 2018-04-24 12:35 | CON ---
[address] [address] CONSULTATION Name: QIANA BLANCO Room: [address] IN M.R.#: [id number] Admission: 04/18/18 Attend Phys: Maci Nichols Discharge: Date of : 32 Report #: [id number] THIS REPORT FOR: //name// CC: [place] Edmonds DICTATED BY: Rachell Nation [facility] DATE OF SERVICE: 04/23/2018 Please note at the time of this dictation, the patient was seen and physically examined by myself. REASON FOR CONSULTATION: Epigastric to chest pain. HISTORY OF PRESENT ILLNESS: This is an 88-year-old female who presented to the Emergency Room with ongoing substernal chest tightness and epigastric pain, that she also noted some left arm pain, some shortness of air, and her heart was racing. She states this epigastric pain has been going on for about a year. She was scheduled to be seen in the office tomorrow as well. The patient was last seen by us in 2014 when she underwent an EGD and noted just to 2 cm hiatal hernia. Back in 2011, she had a Schatzki ring that was dilated and healed gastric ulcer had been noted. Prior to all that, the patient used to take lots of NSAIDs. She has not done, so she does take a lot of extra strength Tylenol, however, per her . Last colonoscopy was in 2011. She had a benign sigmoid polyp, otherwise essentially negative. ALLERGIES: INCLUDE SULFA, MAGNESIUM OXIDE, DOXYCYCLINE AND ARICEPT. MEDICATIONS: From home include oxybutynin, Xanax, Klor-Con, Coumadin, Norvasc, vitamin B12, Catapres, Xyzal, MiraLax, vitamin D, iron, docusate, Prilosec, ranitidine, warfarin, Lasix, extra strength Tylenol, Coreg, Prozac. PAST MEDICAL HISTORY: History of CVA; atrial fibrillation, on chronic anticoagulant therapy; hypertension; hyperlipidemia; GERD; chronic kidney disease. PAST SURGICAL HISTORY: Cholecystectomy, had a pacemaker in 2012. FAMILY HISTORY: Noncontributory. SOCIAL HISTORY: Lives at home with her . Denies any alcohol, tobacco or illegal drug use. REVIEW OF SYSTEMS: Twelve-point review [place] [address] CONSULTATION Name: QIANA BLANCO Room: [address]#: [id number] Admission: 04/18/18 Attend Phys: Maci Nichols Discharge: Date of : 32 Report #: [id number] except what is mentioned in the HPI. PHYSICAL EXAMINATION: VITAL SIGNS: Temperature 36.8, pulse 60, respirations 17, blood pressure 159/65. HEART: Slight irregular rate and rhythm. LUNGS: Clear, slightly diminished. ABDOMEN: Soft, positive bowel sounds in all 4 quadrants with some epigastric tenderness noted to palpation. LABORATORY DATA: Hemoglobin 12.6, hematocrit 5.3, platelets 185, GFR is 47. PT is 20, INR is 2. That was on 04/20/2018. IMPRESSION: 1. Epigastric pain. 2. History of gastric ulcer and a hiatal hernia. 3. Anticoagulant therapy secondary to atrial fibrillation and cerebrovascular accident. PLAN: 1. EGD today. 2. Recheck PT, INR and CBC at 11:00 today prior to procedure. Last dose of warfarin was Sunday evening. 3. Further recommendations to be made after the procedure has been performed. Thank you for allowing us to participate in this patient's care. Please do not hesitate to call with any questions in regard to this consult. <ELECTRONICALLY SIGNED> By: Adeola Feliz MD 04/24/18 1235 1042 0530Adeola Feliz MD /nt
[2018-04-24 15:47] VITALS: BP 163/66
[2018-04-24] MEDS ORDERED: PROTONIX40 M1 PO (16:04)
--- NOTE | 2018-04-26 12:05 | PATH ---
[facility] [address] [place] [address] PATHOLOGY RPT PROCEDURE Name: LIZ CARTER Room: [address] IN M.R.#: [id number] Admission: 04/18/18 Date of : 34 Discharge: 04/24/18 Report #: [id number] Path Case #: [id number] [facility] Accession Number: [id number] . 01 Material submitted: . GASTRIC BIOPSY . 01 Clinical history: . Rule out gastritis . 02 Diagnosis: Gastric biopsy: - Mild chronic and focal active gastritis suggesting reactive gastropathy (chemical gastritis), negative for Helicobacter pylori organisms, granulomas and dysplasia. (AINSLEY/db; 04/25/2018) LBQ/04/25/2018 . 02 Comment: Special stain: H. pylori immuno . 02 Electronically signed: . Rosalino Harrison MD, Pathologist NPI- [id number] . 01 Gross description: . The specimen is received in formalin, labeled "Liz Carter, gastric BX" and consists of 5 fragments of chowdary tissue measuring between 0.2 x 0.2 cm and 0.4 x 0.3 x 0.2 cm which are entirely submitted in A1. (SDY; 04/24/2018) SYU/SYU . 02 Pathologist provided ICD-10: K29.50 . 02 CPT . 319654, N06440 Specimen Comment: A courtesy copy of this report has been sent to Specimen Comment: [phone], , . Specimen Comment: Report sent to ,DR COLÓN / DR BLOUNT Specimen Comment: A duplicate report has been generated due to demographic updates. Performed at: [address] [id number] MD Clement Cruz MD Phone: [phone] Performed at: [address] [place] [address] PATHOLOGY RPT PROCEDURE Name: MAURILIZ ESTRADA Vero Room: [address] IN M.R.#: [id number] Admission: 04/18/18 Date of : 32 Discharge: 04/24/18 Report #: [id number] Path Case #: [id number] [address] [place] [address], [place] [id number] MD Rosalino Harrison MD Phone: [phone]
--- NOTE | 2018-04-28 15:08 | CON ---
[facility] [address] [place] [address] CONSULTATION Name: AMOL BLANCOONA Vero Room: [address] IN M.R.#: [id number] Admission: 04/18/18 Attend Phys: Maci Nichols Discharge: 04/24/18 Date of : 32 Report #: [id number] THIS REPORT FOR: //name// CC: Florida Mcintosh DATE OF SERVICE: 04/19/2018 CARDIOLOGY CONSULTATION PRIMARY CARE PHYSICIAN: [place] Fry DO. HISTORY OF PRESENT ILLNESS: The patient is an 88-year-old white female who came to the hospital complaining of lower extremity edema. The patient has a history of permanent atrial fibrillation. I implanted a permanent pacemaker several years ago for symptomatic bradycardia. She has been chronically anticoagulated. I last saw her in the office in January. The patient has a history of edema. Previous echocardiogram in 2018 showed an ejection fraction of 50%, left ventricular hypertrophy, left atrial enlargement and mild mitral regurgitation. I suggested that she take the Lasix only as needed for edema. She notes that after that time, however, her blood pressure was elevated and she had increasing edema. She saw my nurse practitioner last week, who told her to decrease the potassium, to only take as needed with the Lasix. However, the patient states that since that time, she has had increasing swelling of her feet. Her finally brought her to the Emergency Room yesterday. She did feel some chest tightness and shortness of breath, but no palpitation or syncope. She has had no bleeding. PAST MEDICAL HISTORY: Otherwise significant for back surgery, cholecystectomy, hysterectomy and hypertension. MEDICATIONS: Consist of Xanax, amlodipine, clonidine, furosemide, omeprazole, Oxybutynin, potassium, ranitidine, warfarin and carvedilol. ALLERGIES: She has no known drug allergies. SOCIAL HISTORY: She is . She and her live in [place]. No smoking. FAMILY HISTORY: Positive for heart disease. REVIEW OF SYSTEMS: She apparently had a stroke years ago, affecting the right side of her face. She has no history of asthma. She has had a peptic ulcer. No liver disease, no kidney disease, no cancer[place] [address] CONSULTATION Name: QIANA BLANCO Room: [address]#: [id number] Admission: 04/18/18 Attend Phys: Maci Nichols Discharge: 04/24/18 Date of : 32 Report #: [id number] PHYSICAL EXAMINATION: GENERAL: Revealed an elderly female lying in bed. She appeared in no distress. VITAL SIGNS: Show blood pressure of 140/60, pulse 60. She is afebrile. HEENT: She was anicteric, conjunctivae pink. Mucous members moist. NECK: Neck veins nondistended. CHEST: Clear to auscultation. CARDIAC EXAMINATION: Irregular rhythm. ABDOMEN: Soft. EXTREMITIES: Had no edema. Dorsalis pedis pulse 1+ bilaterally. SKIN: Cool and dry. NEUROLOGICAL EXAMINATION: Nonfocal. LABORATORY DATA: Her ECG showed a ventricular paced rhythm, occasional intrinsic beats. Her workup, she had a nuclear stress test done 10/2017 here at [place] that showed no evidence of ischemia, normal ejection fraction. She had an echocardiogram in 10/2017 here at [place], which showed ejection fraction of 50%, left ventricular hypertrophy, mild aortic stenosis with a peak gradient across the aortic valve of only 5 mmHg. X-rays yesterday. She had venous duplex scan performed last October that showed no evidence of DVT in the right lower extremity. Chest x-ray yesterday showed no acute abnormality. Her lab work yesterday, sodium 141, potassium 3.1 and creatinine 1.1. Magnesium 1.6. Troponin 0.06. BNP 4577. Her white blood cell count was 5.3, hemoglobin 12.6. INR was 2.4. IMPRESSION AND RECOMMENDATIONS: 1. Chest pain. Atypical for angina. Negative stress test in October. Recommend no further cardiac evaluation. 2. Hypertension. The patient is on clonidine, beta lucie and calcium lucie. 3. Edema. Recommend increasing Lasix back to every day. 4. Hypokalemia. Recommend increasing potassium to every day. 5. Previous stroke. The patient is chronically anticoagulated. 6. Atrial fibrillation. Rate controlled with a beta lucie. I would continue anticoagulation, maintain an INR of 2-3. 7. Previous pacemaker insertion. The patient's pacemaker was programmed in the demand mode at 60 beats per minute. <ELECTRONICALLY SIGNED> By: Sumeet Brandon MD, FACC 04/28/18 1508 1152 [id number] Brandon MD, FAC /nt
== END 2018-04-24 19:00 | DRG 392 ==
LOC: M.ERS 16:03 → M.TBA-ER 17:06 → M.2W 17:06
PROVIDERS: Emergency Medicine Emergency Medical Services; Internal Medicine Cardiovascular Disease; Nurse Practitioner Adult Health; ADMIT Internal Medicine
PROC: 0DB68ZX Excision of Stomach, Via Natural or Artificial Opening Endoscopic, Diagnostic (ICD-10-PCS; principal; 2018-04-23)
DX: K21.0 Gastro-esophageal reflux disease with esophagitis (principal); L03.115 Cellulitis of right lower limb; D68.59 Other primary thrombophilia; I13.0 Hypertensive heart and chronic kidney disease with heart failure and stage 1 through stage 4 chronic kidney disease, or unspecified chronic kidney disease; I50.42 Chronic combined systolic (congestive) and diastolic (congestive) heart failure; L03.116 Cellulitis of left lower limb; K22.2 Esophageal obstruction; R07.89 Other chest pain; I48.2 Chronic atrial fibrillation; N18.3 Chronic kidney disease, stage 3 (moderate); I08.3 Combined rheumatic disorders of mitral, aortic and tricuspid valves; K29.70 Gastritis, unspecified, without bleeding; K44.9 Diaphragmatic hernia without obstruction or gangrene; E87.6 Hypokalemia; E78.5 Hyperlipidemia, unspecified; F32.9 Major depressive disorder, single episode, unspecified; Z90.49 Acquired absence of other specified parts of digestive tract; Z86.73 Personal history of transient ischemic attack (TIA), and cerebral infarction without residual deficits; Z95.0 Presence of cardiac pacemaker; Z90.710 Acquired absence of both cervix and uterus; Z91.81 History of falling; Z87.01 Personal history of pneumonia (recurrent); Z87.81 Personal history of (healed) traumatic fracture; Z79.01 Long term (current) use of anticoagulants; Z79.899 Other long term (current) drug therapy; Z88.2 Allergy status to sulfonamides; Z88.8 Allergy status to other drugs, medicaments and biological substances; Z82.49 Family history of ischemic heart disease and other diseases of the circulatory system

== ENCOUNTER → 2018-06-05 | Outpatient (CLI) | payer MEDICARE, OTHER ==
[~2018-06-05] MED LIST changes: +24HR ALLERGY REL5 MG PO; +PEPCID20 MG PO; +POTASSIUM20 PO; +PROZAC 10 MG CA10 MG PO; +SYSTANE GEL EYE10 ML OPHTHALMIC; +TUMS X-STR300 MG PO
[2018-06-05 10:14] LABS: ALBUMIN 3.6 g/dL (3.4-5.0); CALCIUM 8.7 mg/dL (8.5-10.1); CREATININE 1.1 mg/dL (0.6-1.3); POTASSIUM 3.6 mmol/L (3.5-5.1); TOTAL BILIRUBIN 0.5 mg/dL (<0.1-1.0); TOTAL PROTEIN 6.9 g/dL (6.4-8.2)
== END ==
LOC: M.LAB 08:53
PROVIDERS: Nurse Practitioner Adult Health
DX: K20.9 Esophagitis, unspecified (principal)

== ENCOUNTER 2020-04-16 10:20 | Inpatient (IN) | payer MEDICARE, OTHER ==
[~2020-04-16] VITALS: Ht 170.2 cm; Wt 67.1 kg
--- NOTE | ~2020-04-16 | PROC ---
[address] [address] PROCEDURE REPORT Name: QIANA BLANCO Room: [address] IN M.R.#: [id number] Admission: 04/17/20 Attend Phys: Leelee Khalil MD Discharge: 04/20/20 Date of : 34 Report #: [id number] THIS REPORT FOR: cc: Florida Fry Linda J. DO ~ [facility],Medical Records Staff For GI report, please see the Provation report in Perceptive 7 content. By: [id number] Records Staff [facility] /TRUDY
--- NOTE | ~2020-04-16 | CON ---
[address] [address] CONSULTATION Name: QIANA BLANCO Room: [address] IN M.R.#: [id number] Admission: 04/17/20 Attend Phys: Leelee Khalil MD Discharge: Date of : 34 Report #: [id number] THIS REPORT FOR: cc: Florida Fry Linda J. DO ~ Adeola Feliz MD DATE OF SERVICE: 04/17/2020 REQUESTING PHYSICIAN: Leelee Khalil MD REASON FOR CONSULT: Dysphagia. HISTORY OF PRESENT ILLNESS: This is an 89-year-old female who is a poor historian as she has multiple medical problems including sick sinus syndrome, hypertension, CHF, AFib, and dementia. The patient was apparently admitted for chest pain. We were consulted mainly in reference to her dysphagia. She takes Coumadin for AFib and her INR on admission was 2.1 and is 1.8 today. There is no report of hematochezia or melena. The patient also had COVID testing upon admission, which was negative. PAST MEDICAL HISTORY: Significant to what mentioned above. The patient also has gastroesophageal reflux disease, anxiety and depression. ALLERGIES: SIGNIFICANT TO ARICEPT, DOXYCYCLINE, MAGNESIUM OXIDE, SULFA. MEDICATIONS: Please refer to MAR. SOCIAL HISTORY: There is no history of tobacco or alcohol use. FAMILY HISTORY: Noncontributory. PHYSICAL EXAMINATION: VITAL SIGNS: Revealed as stated age female. LUNGS: Clear to auscultation bilaterally. CARDIOVASCULAR: Regular rate. ABDOMEN: Soft, nontender, nondistended. Bowel sounds are positive. NEUROLOGIC: The patient appears somewhat confused. LABORATORY DATA: Labs reveal sodium of 132, potassium 3.2, BUN is 11, creatinine 0.8, glucose is 100, AST 19, ALT 18, alkaline phosphatase 101, total bilirubin 0.8. Lipase 57. Albumin 3.7. INR is 1.8, PT is 18.9. WBC is 4.9 with hemoglobin of 11.4 and platelet of 150. ASSESSMENT AND PLAN: The patient with multiple [place] [address] CONSULTATION Name: QIANA BLANCO Room: [address] IN [facility]#: [id number] Admission: 04/17/20 Attend Phys: Leelee Khalil MD Discharge: Date of : 34 Report #: [id number] warfarin for atrial fibrillation and her INR is 1.8. The warfarin has been placed on hold. We are consulted to further evaluate chest pain and dysphagia. We will await her INR normalizes and perform an upper endoscopy, most probably on Sunday. By: 1101 [id number] Feliz MD /nt
[2020-04-16 10:21] VITALS: BP 167/68
[2020-04-16] MEDS ORDERED: BUMEX2 MG PO (10:37)
[2020-04-16] MEDS ORDERED: MIRALAX119 GM PO ×2 (10:38)
[2020-04-16] MEDS ORDERED: ALIGN4 MG PO ×2 (10:38→20:06)
[2020-04-16] MEDS ORDERED: CLARITIN10 M3 PO (10:39)
[2020-04-16] MEDS ORDERED: GAS RELIEF125 MG PO (10:39)
[2020-04-16] MEDS ORDERED: MAPAP500 MG PO (10:40)
[2020-04-16 11:10] LABS: ABSOLUTE EOSINOPHILS 0.1 thou/uL (0.0-0.7); ABSOLUTE LYMPHOCYTES 0.9 thou/uL (0.8-5.3); ABSOLUTE MONOCYTES 0.5 thou/uL (0.0-1.2); ABSOLUTE NEUTROPHILS 3.4 thou/uL (1.6-8.1); BASOPHILS 0.6 %; EOSINOPHILS 1.7 %; HEMATOCRIT 33.2 % (37.0-47.0); HEMOGLOBIN 11.4 gm/dL (12.0-15.0); LYMPHOCYTES 18.5 %; MCH 35.4 pg (26.0-34.0); MCHC 34.5 g/dL (28.0-37.0); MCV 102.8 fL (80.0-100.0); MONOCYTES 9.8 %; MPV 6.2 fl. (7.2-11.1); NUCLEATED RBCS 0 /100WBC; PLATELET COUNT* 150 thou/uL (150-400); POLYS 69.4 %; RBC 3.23 mil/uL (4.20-5.00); RDW-CV 13.3 % (10.5-14.5); WBC 4.9 thou/uL (4.0-11.0)
[2020-04-16 11:21] LABS: CALCIUM 9.3 mg/dL (8.5-10.1); CREATININE 0.8 mg/dL (0.6-1.3); POTASSIUM 3.2 mmol/L (3.5-5.1)
[2020-04-16 11:24] LABS: APTT 36.5 Seconds (25.0-31.3); INR 2.1
[2020-04-16 11:35] LABS: ALBUMIN 3.7 g/dL (3.4-5.0); CK-MB MASS 0.8 ng/mL (<0.5-3.6); MAGNESIUM 1.9 mg/dL (1.8-2.4); TOTAL BILIRUBIN 0.8 mg/dL (<0.1-1.0); TOTAL PROTEIN 7.3 g/dL (6.4-8.2)
--- NOTE | 2020-04-16 15:04 | NUR ---
BEDSIDE ECHO BEING DONE AT THIS TIME.
[2020-04-16 15:30] VITALS: BP 152/56
[2020-04-16 15:59] LABS: CHOLESTEROL 199 mg/dL (<200); HDL CHOLESTEROL 69 mg/dL (>40); LDL CHOLESTEROL 109 mg/dL (<100); TC:HDL 2.9 Ratio (Not establshd); TRIGLYCERIDE 105 mg/dL (<150); VLDL 21 mg/dL (<40)
[2020-04-16 16:01] LABS: SERUM ASSESSMENT CLEAR
--- NOTE | 2020-04-16 16:22 | 2DMMODE ---
[place] [address] 2 D/M-MODE ECHOCARDIOGRAM Name: QIANA BLANCO Vero Room: [facility] Lizeth#: [id number] Admission: 04/16/20 Attend Phys: Leelee Khalil, Discharge: Date of : 34 Date of Service: 04/16/20 1622 Report #: [id number] THIS REPORT FOR: cc: Florida Fry,Florida Parsons,Sidney Mckenna MD [facility] ~ APPROVED REPORT Study performed: 04/16/2020 14:59:26 EXAM: Comprehensive 2D, Doppler, and color-flow Echocardiogram Patient Location: In-Patient Room #: er Status: routine BSA: 1.82 HR: 67 bpm BP: 168/60 mmHg Rhythm: Atrial Fibrillation Other Information Study Quality: Good Indications Atrial Fibrillation Chest Pain 2D Dimensions IVSd: 9.90 (7-11mm) LVOT Diam: 19.49 (18-24mm) LVDd: 50.34 mm PWd: 8.37 (7-11mm) Ascending Ao: 31.09 (22-36mm) LVDs: 38.55 (25-40mm) Aortic Root: 28.62 mm Volumes Left Atrial Volume (Systole) LA ESV Index: 71.80 mL/m2 Aortic Valve AoV Peak Slade.: 2.11 m/s AO Peak Gr.: 17.73 mmHg LVOT Max P.22 mmHg AO Mean Gr.: 9.28 mmHg LVOT Mean P.02 mmHg LVOT Max V: 0.75 m/s AO V2 VTI: 45.13 cm LVOT Mean V: 0.46 m/s DARVIN (VTI): 1.13 cm2 LVOT V1 VTI: 17.03 [place] [address] 2 D/M-MODE ECHOCARDIOGRAM Name: QIANA BLANCO Room: [address] M.R.#: [id number] Admission: 04/16/20 Attend Phys: Leelee Khalil, Discharge: Date of : 34 Date of Service: 04/16/20 1622 Report #: [id number] AI Pacific: 2.12 m/s2 AI PHT: 452.59 ms TDI Medial E' Slade.: 0.07 m/s Lateral E' Slade.: 0.11 m/s Pulmonary Valve PV Peak Slade.: 1.09 m/s PV Peak Gr.: 4.76 mmHg Tricuspid Valve RAP Estimate: 10.00 mmHg TR Peak Gr.: 37.05 mmHg RVSP: 47.00 mmHg PA Pressure: 47.00 mmHg Left Ventricle The left ventricle is normal size. There is normal LV segmental wall motion. There is normal left ventricular wall thickness. Left ventricular systolic function is mildly decreased. LVEF is 45-50%. This study is not technically sufficient to allow evaluation of the LV diastolic function due to atrial fibrillation. Right Ventricle Right ventricle is dilated. The right ventricular systolic function is normal. Pacemaker lead is present in the right ventricle. Atria Left atrium is severely dilated. Right atrium is moderately dilated. Aortic Valve Moderate aortic valve sclerosis. Mild to moderate aortic regurgitation. Mild aortic stenosis. Mitral Valve There is mitral annular calcification. Mild mitral regurgitation. No evidence of mitral valve stenosis. Tricuspid Valve The tricuspid valve is normal in structure. Mild tricuspid regurgitation. Moderate pulmonary hypertension. Pulmonic Valve The pulmonary valve is normal in structure. [place] [address] 2 D/M-MODE ECHOCARDIOGRAM Name: QIANA BLANCO [address] [id number] Admission: 04/16/20 Attend Phys: Leelee Khalil, Discharge: Date of : 34 Date of Service: 04/16/20 1622 Report #: [id number] Great Vessels The aortic root is normal in size. IVC is dilated. Pericardium There is no pericardial effusion. <Conclusion> The left ventricle is normal size. There is normal left ventricular wall thickness. Left ventricular systolic function is mildly decreased. LVEF is 45-50%. This study is not technically sufficient to allow evaluation of the LV diastolic function due to atrial fibrillation. Right ventricle is dilated. Left atrium is severely dilated. Right atrium is moderately dilated. Moderate aortic valve sclerosis. Mild to moderate aortic regurgitation. Mild aortic stenosis. There is mitral annular calcification. Mild mitral regurgitation. The tricuspid valve is normal in structure. Mild tricuspid regurgitation. Moderate pulmonary hypertension. IVC is dilated. There is no pericardial effusion. There is normal LV segmental wall motion. Pacemaker lead is present in the right ventricle. <ELECTRONICALLY SIGNED> By: Sidney Stanford MD, FACC 04/16/20 162 162 21 Sidney Stanford MD, FACC /INF
[2020-04-16 16:30] VITALS: BP 163/63
[2020-04-16 16:35] VITALS: BP 170/63
--- NOTE | 2020-04-16 16:46 | EKG ---
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 : 1930 Requested By: Gallo Shaikh Order Number: [id number] MD: Sidney Stanford Measurements Intervals [place] Rate: 60 P: VT: QRS: -64 QRSD: 185 T: 116 QT: 518 QTc: 518 Interpretive Statements Afib/flutter and ventricular-paced rhythm No further analysis attempted due to paced rhythm Baseline wander in lead(s) V6 Compared to ECG 04/21/2018 08:08:31 No significant change Electronically Signed On 04-16-2020 16:46:01 DOPSTER by Sidney Stanford [email or web address] <ELECTRONICALLY SIGNED> By: Sidney Stanford MD, FACC 04/16/20 1646 1024 1024 Sidney Stanford MD, FAC /EPI
[2020-04-16] MEDS ORDERED: HYDROXYZINE HCL25 M2 PO (17:27)
[2020-04-16] MEDS ORDERED: NITROSTAT0.4 M1 SUBLING (17:30)
[2020-04-16 19:30] VITALS: BP 168/63
--- NOTE | 2020-04-16 19:35 | NUR ---
PT ADMITTED TO ROOM 219 VIA CART FROM ED AT APPROX 1615, REPORT RECEIVED FROM PEG RN. I CALLED [facility] [address] TO RECONCILE PT MEDS, PT GAVE ME A LIST OF HER MEDS WHICH WERE SLIGHTLY DIFFERENT, DR MONTES CONSULTS AND STATED TO PUT MEDS FROM PT'S HOME LIST ON HER HOME MEDS. ADMISSION ASSESSMENT AND HX COMPLETED, SEPSIS CHARTED NEGATIVE. PT ORIENTED TO ROOM AND CALL LIGHT, PT AOX4 BUT VERY FORGETFUL W/ SHORT TERM MEMORY. PT GOAL IS TO REMAIN FREE FROM FALLS AND WORK W/ GI. PT UP W/ 1 TO COMMODE, PT TO BE NPO AFTER MIDNIGHT FOR EGD IN THE MORNING FOR DYSPHAGIA. COUMADIN BEING HELD FOR EGD. MEDS PER MAR, HOURLY ROUNDING OBSERVED, FALL PRECAUTIONS IN PLACE, CALL LIGHT W/IN REACH.
[2020-04-16] MEDS ORDERED: NOXIFOL-D32500 UNIT PO (20:07)
[2020-04-16] MEDS ORDERED: TYLENOL325 M1 PO (20:08)
[2020-04-16] MEDS ORDERED: JANTOVEN2.5 MG PO (20:09)
[2020-04-16] MEDS ORDERED: JANTOVEN3 MG PO (20:09)
[2020-04-16] MEDS ORDERED: JANTOVEN5 MG PO (20:09)
[2020-04-16 21:43] LABS: URINE BILIRUBIN NEGATIVE (Negative); URINE BLOOD TRACE (Negative); URINE CLARITY CLEAR; URINE COLOR YELLOW; URINE GLUCOSE-RANDOM NEGATIVE (Negative); URINE KETONES NEGATIVE (Negative); URINE LEUKOCYTES-REFLEX NEGATIVE (Negative); URINE NITRITE-REFLEX NEGATIVE (Negative); URINE PROTEIN NEGATIVE (Negative); URINE SPECIFIC GRAVITY 1.015 (1.005-1.030); URINE UROBILINOGEN 0.2 E.U./dl (0.2-1.0)
[2020-04-16 23:46] VITALS: BP 136/55
[2020-04-17 02:06] LABS: GLYCOHEMOGLOBIN (HGB A1C) 5.6 % (4.8-5.6)
--- NOTE | 2020-04-17 03:30 | NUR ---
ASSUMED CARE OF PT AT 1900. PT IS ALERT AND ORIENTED. VSS. PERANTHONY. PT IS ON ROOM AIR. PT IS V PACED ON THE TELEMETRY. PT IS RESTING COMFORTABLY IN BED. RESPIRATIONS ARE EVEN AND NONLABORED. WILL CONTINUE TO MONITOR PT.
[2020-04-17 04:00] VITALS: BP 113/66
[2020-04-17 06:45] LABS: INR 1.8; PROTIME 18.9 Seconds (9.20-11.50)
[2020-04-17 08:00] VITALS: BP 136/56
[2020-04-17 12:18] VITALS: BP 150/59
[2020-04-17 15:51] VITALS: BP 142/65
--- NOTE | 2020-04-17 16:00 | NUR ---
PT RESTING AT THIS TIME. DID C/O ANXIETY AND NOTED THAT HOME MED NOT SAME EMAR AVAILABILITY. PHYSICIAN CHANGED APPROPRIATELY.PT DID NOT HAVE EGD THIS AM RELATED TO INR OF 1.8. PT UNDERSTANDS AND FAMILY EDUCATED WELL. PT VSS ON RA. AVPACED ON MONITOR. NOTHING FURTHER.CLWR
--- NOTE | 2020-04-17 16:30 | NUR ---
CM SPOKE TO THE PT TO DISCUSS CM ASSESSMENT. PT A&O, AND NORMALLY INDEPENDENT WITH ADL'S. PT RESIDES AT HOME AND HER DTR HAS BEEN STAYING WITH HER. PT INFORMS THAT HE DTR HAS BEEN HELPING WITH COOKING, CLEANING, AND GROCERY SHOPPING AND IS CURRENTLY LOOKING FOR PLACEMENT FOR HER (POSSIBLY ASSISTED LIVING). PT USES A CANE FOR MOBILITY WHEN IN THE PUBLIC. PT HAS PAST HX OF SNF. PATITENT HAS 0 HX OF SNF. CM WILL REMAIN AVAILABLE TO ASSIST AND FOLLOW NEEDED.
[2020-04-17 19:40] VITALS: BP 159/61
[2020-04-17 23:28] VITALS: BP 142/61
--- NOTE | 2020-04-18 03:20 | NUR ---
ASSUMED CARE OF PT AT 1900. PT IS ALERT AND ORIENTED. VSS. PERRLA. NO COMPLAINTS OF PAIN. PT IS ON ROOM AIR. PT IS IN SINUS RYTHM ON THE TELEMETRY. PT IS RESTING COMFORTABLY IN BED. RESPIRATIONS ARE EVEN AND NONLABORED. WILL CONTINUE TO MONITOR PT.
[2020-04-18 03:26] VITALS: BP 123/54
[2020-04-18 05:05] LABS: INR 1.4; PROTIME 14.2 Seconds (9.20-11.50)
[2020-04-18 05:10] LABS: ABSOLUTE EOSINOPHILS 0.1 thou/uL (0.0-0.7); ABSOLUTE LYMPHOCYTES 1.5 thou/uL (0.8-5.3); ABSOLUTE MONOCYTES 0.7 thou/uL (0.0-1.2); ABSOLUTE NEUTROPHILS 3.4 thou/uL (1.6-8.1); BASOPHILS 0.8 %; EOSINOPHILS 2.5 %; HEMATOCRIT 35.1 % (37.0-47.0); HEMOGLOBIN 11.9 gm/dL (12.0-15.0); LYMPHOCYTES 25.3 %; MCH 34.8 pg (26.0-34.0); MCHC 33.9 g/dL (28.0-37.0); MCV 102.6 fL (80.0-100.0); MONOCYTES 12.5 %; MPV 6.7 fl. (7.2-11.1); NUCLEATED RBCS 0 /100WBC; PLATELET COUNT* 163 thou/uL (150-400); POLYS 58.9 %; RBC 3.42 mil/uL (4.20-5.00); RDW-CV 13.4 % (10.5-14.5); WBC 5.8 thou/uL (4.0-11.0)
[2020-04-18 08:00] VITALS: BP 144/52
[2020-04-18 12:00] VITALS: BP 140/65
[2020-04-18 16:00] VITALS: BP 123/66
--- NOTE | 2020-04-18 18:51 | NUR ---
PT RESTED T/O DAY WITHOUT COMPLAINTS.VSS ON RA.VPACED ON MONITOR.PT REQUESTED XANAX TIMES ONE THIS AM. PT TO BE NPO AFTER MIDNIGHT FOR EGD DILATION.NOTHING FURTHER.CLWR.
[2020-04-18 19:55] VITALS: BP 132/60
[2020-04-18 23:56] VITALS: BP 111/52
[2020-04-19] VITALS (9 sets, daily range): BP systolic 116–144; BP diastolic 46–63
--- NOTE | 2020-04-19 04:24 | NUR ---
ASSUMED CARE OF PT AT 1900. PT IS ALERT AND ORIENTED. VSS. PERRLA. NO COMPLAINTS OF PAIN. PT IS V PACED ON THE TELEMETRY. PT IS RESTING COMFORTABLY IN BED. RESPIRATIONS ARE EVEN AND NONLABORED. WILL CONTINUE TO MONITOR PT.
[2020-04-19 04:53] LABS: INR 1.2
[2020-04-19 04:55] LABS: ABSOLUTE EOSINOPHILS 0.2 thou/uL (0.0-0.7); ABSOLUTE LYMPHOCYTES 1.6 thou/uL (0.8-5.3); ABSOLUTE MONOCYTES 0.8 thou/uL (0.0-1.2); ABSOLUTE NEUTROPHILS 3.5 thou/uL (1.6-8.1); BASOPHILS 0.6 %; EOSINOPHILS 3.8 %; HEMATOCRIT 32.4 % (37.0-47.0); HEMOGLOBIN 11.1 gm/dL (12.0-15.0); LYMPHOCYTES 25.5 %; MCH 35.2 pg (26.0-34.0); MCHC 34.4 g/dL (28.0-37.0); MCV 102.4 fL (80.0-100.0); MONOCYTES 13.5 %; MPV 6.9 fl. (7.2-11.1); NUCLEATED RBCS 0 /100WBC; PLATELET COUNT* 143 thou/uL (150-400); POLYS 56.6 %; RBC 3.17 mil/uL (4.20-5.00); RDW-CV 13.5 % (10.5-14.5); WBC 6.2 thou/uL (4.0-11.0)
[2020-04-19 05:13] LABS: ALBUMIN 3.1 g/dL (3.4-5.0); CALCIUM 8.5 mg/dL (8.5-10.1); CREATININE 1.1 mg/dL (0.6-1.3); TOTAL BILIRUBIN 0.7 mg/dL (<0.1-1.0); TOTAL PROTEIN 6.1 g/dL (6.4-8.2)
--- NOTE | 2020-04-19 10:30 | NUR ---
ASSUMED CARE OF PT AT 0730. PT RESTING IN BED. NPO FOR EGD TODAY. A&0X4, DENIES ANY PAIN OR SHORTNESS OF BREATH AT THIS TIME. TRACING V PACED ON THE SIGNALS COLLECTION TECHNICIAN. ON RA SAT UPPER 90'S. PT UP SBA TO BATHROOM. GI CONSULT IN PLACE. PT GOAL FOR TODAY IS COMPLETE EGD AND REPLACING POTASSIUM PER ELECTROLYTE PROTOCOL. AM ASSESSMENT CHARTED. MEDICATIONS PER APR. PT REPOSTIIONS SELF. HOURLY ROUNDING OBSERVED. BED IN LOW POSITION. CALL LIGHT WITHIN REACH. WILL CONTINUE PLAN OF CARE.
--- NOTE | 2020-04-19 13:59 | NUR ---
CM INFORMED DURING PRIME ROUNDING OF THE PLAN OF CARE FOR THE PT. PLAN FOR THE PT TO HAVE AN EGD TODAY AND POSSIBLY D/C AFTER. PHYSICIAN RECOMMENDING HH AT D/C CM TO DISCUSS WITH PT AND HER DTR. CM WILL REMAIN AVAILABLE TO ASSIST AND FOLLOW NEEDED.
[2020-04-20 00:18] VITALS: BP 119/60
[2020-04-20 04:05] VITALS: BP 124/61
--- NOTE | 2020-04-20 05:14 | NUR ---
PT IS ABLE TO COMMUNICATE HER NEEDS TO STAFF EFFECTIVELY. SHE HAS DENIED THE NEED FOR PAIN MEDICATION UP TO THIS TIME. PT HAS BEEN UP TO THE [facility] SEVERAL TIMES THIS SHIFT. POSSIBLE DISCHARGE TODAY.
[2020-04-20 06:37] LABS: INR 1.1; PROTIME 11.9 Seconds (9.20-11.50)
[2020-04-20 07:55] VITALS: BP 123/60
--- NOTE | 2020-04-20 09:01 | NUR ---
ASSUMED CARE OF PT AT 0730. PT SITTING UP WAITING FOR BREAKFAST. A&0X4, DENIES ANY PAIN OR SHORTNESS OF BREATH AT THIS TIME. TRACING AV PACED ON THE NITROGLYCERIN SUPERVISOR. ON RA SAT UPPER 90'S. PT UP SBA TO BATHROOM. PT GOAL FOR TODAY IS RESTART ANTI COAGULATION AND DISCHARGE PLANNING TO HOME. AM ASSESSMENT CHARTED. MEDICATIONS PER APR. PT REPOSITIONS SELF. HOURLY ROUNDING OBSERVED. BED IN LOW POSITION. CALL LIGHT WITHIN REACH. WILL CONTINUE PLAN OF CARE.
[2020-04-20 09:18] VITALS: BP 125/56
--- NOTE | 2020-04-20 10:43 | NUR ---
CM INFORMED BY THE PHYSICIAN OF PLAN TO D/C PT HOME TODAY WITH HH. CM SPOKE TO THE PT TO DISCUSS THIS AND SHE IS IN AGREEMENT WITH THIS AND AND PERVIOUSLY CHOSEN [facility]. CM TO FAX D/C ORDERS TO [facility]. [facility] WILL CONTACT THE PT TO ARRANGE VISIT. CM WILL REMAIN AVAILABLE TO ASSIST AND FOLLOW NEEDED.
[2020-04-20 11:33] VITALS: BP 125/56
[2020-04-20] MEDS ORDERED: PRILOSEC10 MG PO (11:46)
[2020-04-20 12:00] VITALS: BP 107/54
--- NOTE | 2020-04-21 16:06 | PATH ---
[address] [address] PATHOLOGY RPT PROCEDURE Name: FRANCISAMOLLIZ Vero Room: [address] IN M.R.#: [id number] Admission: 04/17/20 Date of : 34 Discharge: 04/20/20 Report #: [id number] Path Case #: [id number] [facility] Accession Number: [id number] . 01 Material submitted: . gastrointestinal site - GASTRIC BIOPSY FOR GASTRITIS . 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 (AINSLEY:usha; 04/21/2020) . Special stain: H. pylori immuno MBR 04/21/2020 1317 Local . 02 Electronically signed: . Rosalino Harrison MD, Pathologist NPI- [id number] . 01 Gross description: . The specimen is received in formalin, labeled "Liz Carter, gastric biopsies for gastritis". Received are four segments of pale chowdary soft tissue ranging in size from 0.2 to 0.4 cm in maximum dimensions. The specimen is submitted entirely in cassette A1. (CAA; 04/20/2020) QAC/QAC 04/20/2020 1548 Local . 02 Pathologist provided ICD-10: K29.50 . 02 CPT . 232232, U68339 Specimen Comment: A courtesy copy of this report has been sent to [phone] Specimen Comment: Report sent to / Performed at: [address], [place], [place] [id number] MD Reymundo Savage MD Phone: [phone] Performed at: [address] [facility] [address] [place], [place] [id number] MD Rosalino Harrison MD Phone: [phone]
== END 2020-04-20 13:02 | disposition home health service (06) | DRG 391 ==
LOC: M.ERS 10:20 → M.TBA-ER 11:33 → M.ERS 11:33 → M.2W 18:00
PROVIDERS: Family Medicine; Internal Medicine; ADMIT Internal Medicine; ATTEND Internal Medicine
PROC: 0D738ZZ Dilation of Lower Esophagus, Via Natural or Artificial Opening Endoscopic (ICD-10-PCS; principal; 2020-04-19)
PROC: 0DB68ZX Excision of Stomach, Via Natural or Artificial Opening Endoscopic, Diagnostic (ICD-10-PCS; principal; 2020-04-19)
DX: K21.9 Gastro-esophageal reflux disease without esophagitis (principal); E43 Unspecified severe protein-calorie malnutrition; I13.0 Hypertensive heart and chronic kidney disease with heart failure and stage 1 through stage 4 chronic kidney disease, or unspecified chronic kidney disease; I50.42 Chronic combined systolic (congestive) and diastolic (congestive) heart failure; L03.116 Cellulitis of left lower limb; L03.115 Cellulitis of right lower limb; I48.21 Permanent atrial fibrillation; D68.69 Other thrombophilia; K22.2 Esophageal obstruction; K44.9 Diaphragmatic hernia without obstruction or gangrene; K29.70 Gastritis, unspecified, without bleeding; E78.5 Hyperlipidemia, unspecified; F41.9 Anxiety disorder, unspecified; I49.5 Sick sinus syndrome; F03.90 Unspecified dementia, unspecified severity, without behavioral disturbance, psychotic disturbance, mood disturbance, and anxiety; N18.30 Chronic kidney disease, stage 3 unspecified; Z20.822 Contact with and (suspected) exposure to COVID-19; Z86.73 Personal history of transient ischemic attack (TIA), and cerebral infarction without residual deficits; Z90.49 Acquired absence of other specified parts of digestive tract; Z95.0 Presence of cardiac pacemaker; Z79.899 Other long term (current) drug therapy; Z88.2 Allergy status to sulfonamides; Z88.8 Allergy status to other drugs, medicaments and biological substances; Z68.23 Body mass index [BMI] 23.0-23.9, adult; Z28.82 Immunization not carried out because of caregiver refusal

== ENCOUNTER 2020-04-29 12:56 | Inpatient (IN) | payer MEDICARE, OTHER ==
[~2020-04-29] VITALS: Ht 170.2 cm; Wt 65.3 kg
[~2020-04-29 12:56] MED LIST changes: +ALIGN4 MG PO; +BUMEX2 MG PO; +CLARITIN10 M3 PO; +GAS RELIEF125 MG PO; +HYDROXYZINE HCL25 M2 PO; +JANTOVEN2.5 MG PO; +JANTOVEN3 MG PO; +MAPAP500 MG PO; +MIRALAX119 GM PO; +NITROSTAT0.4 M1 SUBLING; +NOXIFOL-D32500 UNIT PO; +PRILOSEC10 MG PO; +TYLENOL325 M1 PO
[2020-04-29 13:06] VITALS: BP 137/58
[2020-04-29 13:26] LABS: ABSOLUTE EOSINOPHILS 0.2 thou/uL (0.0-0.7); ABSOLUTE LYMPHOCYTES 0.7 thou/uL (0.8-5.3); ABSOLUTE MONOCYTES 0.5 thou/uL (0.0-1.2); ABSOLUTE NEUTROPHILS 3.3 thou/uL (1.6-8.1); BASOPHILS 0.7 %; EOSINOPHILS 3.2 %; HEMATOCRIT 32.5 % (37.0-47.0); LYMPHOCYTES 15.6 %; MCH 35.2 pg (26.0-34.0); MCHC 33.9 g/dL (28.0-37.0); MCV 103.7 fL (80.0-100.0); MONOCYTES 10.9 %; NUCLEATED RBCS 0 /100WBC; PLATELET COUNT* 199 thou/uL (150-400); POLYS 69.6 %; RBC 3.14 mil/uL (4.20-5.00); RDW-CV 13.3 % (10.5-14.5); WBC 4.8 thou/uL (4.0-11.0)
[2020-04-29 13:37] LABS: CALCIUM 8.9 mg/dL (8.5-10.1); CREATININE 0.9 mg/dL (0.6-1.3)
[2020-04-29 13:42] LABS: APTT 38.4 Seconds (25.0-31.3); INR 1.8; PROTIME 18.7 Seconds (9.20-11.50)
[2020-04-29 13:47] LABS: ALBUMIN 3.5 g/dL (3.4-5.0); MAGNESIUM 1.8 mg/dL (1.8-2.4); TOTAL BILIRUBIN 0.7 mg/dL (<0.1-1.0); TOTAL PROTEIN 7.6 g/dL (6.4-8.2)
[2020-04-29 16:05] VITALS: BP 140/70
[2020-04-29 16:15] VITALS: BP 147/68
--- NOTE | 2020-04-29 17:07 | EKG ---
[place] [address] ELECTROCARDIOGRAM REPORT Name: MAURIQIANA ESTRADA [address]#: [id number] Admission: 04/29/20 Attend Phys: Elmer Edmonds Discharge: Date of : 34 Date of Service: 04/29/20 1308 Report #: [id number] THIS REPORT FOR: //name// [facility] ED Test Date: 2020-04-29 Test Time: 13:08:34 Pat Name: QIANA BLANCO Department: Room: [facility] Gender: F Guest Advisor: 14 : 1930 Requested By: Simon Corrales Order Number: [id number] MD: Del Mendieta Measurements Intervals [place] Rate: 60 P: 0 [place]: 194 QRS: -63 QRSD: 187 T: 106 QT: 503 QTc: 503 Interpretive Statements Ventricular-paced rhythm Underlying atrial fibrillation No further analysis attempted due to paced rhythm Compared to ECG 04/16/2020 10:24:39 Electronically Signed On 04-29-2020 17:07:31 CONFERENCE SERVICES MANAGER by Del Mendieta [email or web address] <ELECTRONICALLY SIGNED> By: Del Mendieta MD, FACC 04/29/20 1707 1308 1308 Del Mendieta MD, [facility] /EPI
[2020-04-29 20:00] VITALS: BP 157/65
[2020-04-29 23:46] VITALS: BP 110/44
[2020-04-30 04:04] VITALS: BP 130/55
[2020-04-30 08:00] VITALS: BP 145/61
[2020-04-30 11:45] VITALS: BP 145/61
[2020-04-30 12:20] LABS: INR 1.9; PROTIME 19.6 Seconds (9.20-11.50)
[2020-04-30 16:16] VITALS: BP 118/52
[2020-04-30 20:00] VITALS: BP 121/51
[2020-05-01] VITALS: BP 121/55
[2020-05-01 04:00] VITALS: BP 130/58
[2020-05-01 05:00] LABS: POTASSIUM 3.3 mmol/L (3.5-5.1)
[2020-05-01 08:00] VITALS: BP 144/58
[2020-05-01 12:00] VITALS: BP 134/59
[2020-05-01 16:00] VITALS: BP 146/56
[2020-05-01 20:00] VITALS: BP 141/60
[2020-05-02] VITALS: BP 136/63
[2020-05-02 04:00] VITALS: BP 147/62
[2020-05-02 08:00] VITALS: BP 144/62
[2020-05-02] MEDS ORDERED: CARVEDILOL12.5 MG PO (08:17)
[2020-05-02] MEDS ORDERED: BUMEX2 MG PO ×2 (08:47→08:56)
[2020-05-02 09:33] VITALS: BP 144/62
== END 2020-05-02 11:30 | disposition home health service (06) | DRG 291 ==
LOC: M.ERS 12:56 → M.2W 14:30 → M.TBA-ER 14:30 → M.2W 16:03
PROVIDERS: Emergency Medicine Emergency Medical Services; Registered Nurse; ADMIT Internal Medicine; ATTEND Internal Medicine
PROC: 5A0935A Assistance with Respiratory Ventilation, Less than 24 Consecutive Hours, High Flow/Velocity Cannula (ICD-10-PCS; principal; 2020-04-30)
DX: I13.0 Hypertensive heart and chronic kidney disease with heart failure and stage 1 through stage 4 chronic kidney disease, or unspecified chronic kidney disease (principal); I50.43 Acute on chronic combined systolic (congestive) and diastolic (congestive) heart failure; E87.1 Hypo-osmolality and hyponatremia; D68.69 Other thrombophilia; I48.20 Chronic atrial fibrillation, unspecified; I20.9 Angina pectoris, unspecified; E78.5 Hyperlipidemia, unspecified; N18.30 Chronic kidney disease, stage 3 unspecified; K44.9 Diaphragmatic hernia without obstruction or gangrene; F41.9 Anxiety disorder, unspecified; I49.5 Sick sinus syndrome; I42.8 Other cardiomyopathies; E87.6 Hypokalemia; K21.9 Gastro-esophageal reflux disease without esophagitis; Z20.822 Contact with and (suspected) exposure to COVID-19; Z86.73 Personal history of transient ischemic attack (TIA), and cerebral infarction without residual deficits; Z90.49 Acquired absence of other specified parts of digestive tract; Z95.0 Presence of cardiac pacemaker; Z87.01 Personal history of pneumonia (recurrent); Z79.01 Long term (current) use of anticoagulants; Z79.899 Other long term (current) drug therapy; Z88.2 Allergy status to sulfonamides; Z88.8 Allergy status to other drugs, medicaments and biological substances; Z28.21 Immunization not carried out because of patient refusal

== ENCOUNTER → 2020-05-06 | Outpatient (CLI) | payer MEDICARE, OTHER ==
[~2020-05-06] MED LIST changes: +CARVEDILOL12.5 MG PO
== END ==
LOC: M.ULTRA 12:15
PROVIDERS: ATTEND Family Medicine
DX: I73.9 Peripheral vascular disease, unspecified (principal)

== ENCOUNTER 2020-05-17 23:49 | Inpatient (IN) | payer MEDICARE, OTHER ==
[~2020-05-17] VITALS: Ht 170.2 cm; Wt 68.4 kg
[2020-05-17 23:58] VITALS: BP 157/70
[2020-05-18] VITALS (7 sets, daily range): BP systolic 133–164; BP diastolic 53–67
[2020-05-18 00:21] LABS: ABSOLUTE EOSINOPHILS 0.1 thou/uL (0.0-0.7); ABSOLUTE LYMPHOCYTES 1.4 thou/uL (0.8-5.3); ABSOLUTE MONOCYTES 0.5 thou/uL (0.0-1.2); ABSOLUTE NEUTROPHILS 2.7 thou/uL (1.6-8.1); BASOPHILS 0.7 %; HEMATOCRIT 32.1 % (37.0-47.0); LYMPHOCYTES 29.2 %; MCHC 34.2 g/dL (28.0-37.0); MCV 102.1 fL (80.0-100.0); MONOCYTES 10.5 %; MPV 6.4 fl. (7.2-11.1); NUCLEATED RBCS 0 /100WBC; PLATELET COUNT* 191 thou/uL (150-400); POLYS 56.6 %; RBC 3.14 mil/uL (4.20-5.00); RDW-CV 13.4 % (10.5-14.5); WBC 4.7 thou/uL (4.0-11.0)
[2020-05-18 00:31] LABS: CALCIUM 8.7 mg/dL (8.5-10.1); CREATININE 0.8 mg/dL (0.6-1.3); POTASSIUM 3.8 mmol/L (3.5-5.1)
[2020-05-18] MEDS ORDERED: GAS RELIEF125 MG PO (00:32)
[2020-05-18 00:48] LABS: ALBUMIN 3.7 g/dL (3.4-5.0); TOTAL BILIRUBIN 0.9 mg/dL (<0.1-1.0); TOTAL PROTEIN 7.7 g/dL (6.4-8.2)
[2020-05-18 00:49] LABS: APTT 45.1 Seconds (25.0-31.3); PROTIME 39.2 Seconds (9.20-11.50)
[2020-05-18] MEDS ORDERED: FLUOXETINE HCL10 M1 PO (04:36)
[2020-05-18 06:59] LABS: URINE BILIRUBIN NEGATIVE (Negative); URINE BLOOD NEGATIVE (Negative); URINE CLARITY CLEAR; URINE COLOR YELLOW; URINE GLUCOSE-RANDOM NEGATIVE (Negative); URINE KETONES NEGATIVE (Negative); URINE LEUKOCYTES-REFLEX NEGATIVE (Negative); URINE NITRITE-REFLEX NEGATIVE (Negative); URINE PROTEIN NEGATIVE (Negative); URINE UROBILINOGEN 0.2 E.U./dl (0.2-1.0)
[2020-05-18 08:33] LABS: INR 4.1; PROTIME 40.4 Seconds (9.20-11.50)
[2020-05-18 08:35] LABS: CREATININE 0.7 mg/dL (0.6-1.3); MAGNESIUM 1.8 mg/dL (1.8-2.4); PHOSPHORUS* 3.1 mg/dL (2.5-4.9); POTASSIUM 3.6 mmol/L (3.5-5.1)
--- NOTE | 2020-05-18 11:47 | EKG ---
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 : 1930 Requested By: Gayathri Bhakta Order Number: [id number] MD: Del Mendieta Measurements Intervals [place] Rate: 60 P: [place]: QRS: -63 QRSD: 194 T: 111 QT: 537 QTc: 537 Interpretive Statements Afib/flut and V-paced complexes No further analysis attempted due to paced rhythm Baseline wander in lead(s) V6 Compared to ECG 04/29/2020 13:08:34 No significant changes Electronically Signed On 05-18-2020 11:46:59 CDT by Del Mendieta [email or web address] <ELECTRONICALLY SIGNED> By: Del Mendieta MD, FACC 05/18/20 1146 2355 2355 Del Mendieta MD, [facility] /EPI
[2020-05-19] VITALS (7 sets, daily range): BP systolic 107–144; BP diastolic 43–61
[2020-05-19 09:11] LABS: CALCIUM 9.1 mg/dL (8.5-10.1); CREATININE 0.7 mg/dL (0.6-1.3)
[2020-05-19 09:12] LABS: POTASSIUM 2.8 mmol/L (3.5-5.1)
[2020-05-20 04:32] VITALS: BP 115/47
[2020-05-20 04:55] LABS: CALCIUM 8.9 mg/dL (8.5-10.1); MAGNESIUM 1.8 mg/dL (1.8-2.4); POTASSIUM 5.1 mmol/L (3.5-5.1)
[2020-05-20] MEDS ORDERED: BUMEX2 MG PO (07:44)
[2020-05-20 08:00] VITALS: BP 128/50
[2020-05-20 09:24] LABS: PROTIME 23.3 Seconds (9.20-11.50)
[2020-05-20 09:39] LABS: INR 2.3
[2020-05-20 13:07] VITALS: BP 128/50
[2020-05-20 13:32] VITALS: BP 122/51
[2020-05-20 14:29] VITALS: BP 128/50
== END 2020-05-20 13:50 | disposition home or self-care (01) | DRG 392 ==
LOC: M.ERS 23:49 → M.TBA-ER 05-18 01:30 → M.2W 05-18 01:30
PROVIDERS: Internal Medicine; Personal Emergency Response Attendant; ADMIT Family Medicine; ATTEND Family Medicine
DX: K22.2 Esophageal obstruction (principal); E87.1 Hypo-osmolality and hyponatremia; I50.42 Chronic combined systolic (congestive) and diastolic (congestive) heart failure; D68.69 Other thrombophilia; I13.0 Hypertensive heart and chronic kidney disease with heart failure and stage 1 through stage 4 chronic kidney disease, or unspecified chronic kidney disease; E78.5 Hyperlipidemia, unspecified; I48.91 Unspecified atrial fibrillation; K21.9 Gastro-esophageal reflux disease without esophagitis; Z20.822 Contact with and (suspected) exposure to COVID-19; N18.30 Chronic kidney disease, stage 3 unspecified; E86.1 Hypovolemia; Z66 Do not resuscitate; Z86.73 Personal history of transient ischemic attack (TIA), and cerebral infarction without residual deficits; Z90.49 Acquired absence of other specified parts of digestive tract; Z95.0 Presence of cardiac pacemaker; Z88.2 Allergy status to sulfonamides; Z88.8 Allergy status to other drugs, medicaments and biological substances

== ENCOUNTER 2020-07-05 10:11 | Inpatient (IN) | payer MEDICARE, OTHER ==
[~2020-07-05] VITALS: Ht 170.2 cm; Wt 72.4 kg
[~2020-07-05 10:11] MED LIST changes: +FLUOXETINE HCL10 M1 PO
[2020-07-05 10:14] VITALS: BP 127/60
[2020-07-05] MEDS ORDERED: VITAMIN D325 MC3 PO (10:16)
[2020-07-05] MEDS ORDERED: ACETAMINOPHN-CO10 ML PO (10:18)
[2020-07-05 10:39] LABS: ABSOLUTE EOSINOPHILS 0.1 thou/uL (0.0-0.7); ABSOLUTE MONOCYTES 0.6 thou/uL (0.0-1.2); ABSOLUTE NEUTROPHILS 3.5 thou/uL (1.6-8.1); BASOPHILS 0.7 %; EOSINOPHILS 2.1 %; HEMATOCRIT 30.8 % (37.0-47.0); HEMOGLOBIN 10.4 gm/dL (12.0-15.0); LYMPHOCYTES 18.9 %; MCH 34.4 pg (26.0-34.0); MCHC 33.6 g/dL (28.0-37.0); MCV 102.4 fL (80.0-100.0); MONOCYTES 11.3 %; MPV 6.9 fl. (7.2-11.1); NUCLEATED RBCS 0 /100WBC; PLATELET COUNT* 143 thou/uL (150-400); RBC 3.01 mil/uL (4.20-5.00); RDW-CV 12.6 % (10.5-14.5); WBC 5.3 thou/uL (4.0-11.0)
[2020-07-05 10:49] LABS: CALCIUM 9.2 mg/dL (8.5-10.1); CREATININE 0.9 mg/dL (0.6-1.3); POTASSIUM 3.7 mmol/L (3.5-5.1)
[2020-07-05 10:52] LABS: APTT 33.3 Seconds (25.0-31.3); INR 1.5
[2020-07-05 11:00] LABS: ALBUMIN 3.6 g/dL (3.4-5.0); TOTAL BILIRUBIN 0.7 mg/dL (<0.1-1.0); TOTAL PROTEIN 7.5 g/dL (6.4-8.2)
--- NOTE | 2020-07-05 13:53 | EKG ---
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 : 1930 Requested By: Kari Bacon Order Number: [id number] MD: Sumeet Brandon Measurements Intervals [place] Rate: 61 P: 0 [place]: 60 QRS: -60 QRSD: 184 T: 106 QT: 522 QTc: 526 Interpretive Statements Ventricular-paced rhythm No further analysis attempted due to paced rhythm Compared to ECG 05/17/2020 23:55:46 no change Electronically Signed On 07-05-2020 13:52:56 CDT by Sumeet Brandon [email or web address] <ELECTRONICALLY SIGNED> By: Sumeet Brandon MD, [facility] 07/05/20 1352 1106 1106 Sumeet Brandon MD, [facility] /EPI
[2020-07-05 14:49] VITALS: BP 136/60
[2020-07-05 15:00] VITALS: BP 137/59
[2020-07-05 20:00] VITALS: BP 145/51
[2020-07-05 23:50] VITALS: BP 140/53
[2020-07-06 04:00] VITALS: BP 142/58
[2020-07-06 04:32] LABS: HEMATOCRIT 26.2 % (37.0-47.0); HEMOGLOBIN 8.9 gm/dL (12.0-15.0); MCH 34.5 pg (26.0-34.0); MCHC 34.1 g/dL (28.0-37.0); MCV 101.2 fL (80.0-100.0); MPV 7.4 fl. (7.2-11.1); RBC 2.59 mil/uL (4.20-5.00); RDW-CV 12.4 % (10.5-14.5); WBC 4.6 thou/uL (4.0-11.0)
[2020-07-06 04:41] LABS: INR 1.7; PROTIME 17.3 Seconds (9.20-11.50)
[2020-07-06 04:55] LABS: CALCIUM 8.4 mg/dL (8.5-10.1); CREATININE 0.8 mg/dL (0.6-1.3); MAGNESIUM 1.6 mg/dL (1.8-2.4)
[2020-07-06 05:02] LABS: POTASSIUM 2.8 mmol/L (3.5-5.1)
[2020-07-06 07:39] VITALS: BP 126/43
[2020-07-06 12:00] VITALS: BP 123/55
[2020-07-06 13:12] VITALS: BP 122/69
[2020-07-06 17:53] VITALS: BP 134/52
[2020-07-06 20:00] VITALS: BP 133/52
[2020-07-07] VITALS: BP 121/68
[2020-07-07 03:52] VITALS: BP 135/69
[2020-07-07 04:48] LABS: HEMATOCRIT 27.8 % (37.0-47.0); HEMOGLOBIN 9.4 gm/dL (12.0-15.0); MCH 34.4 pg (26.0-34.0); MCHC 33.9 g/dL (28.0-37.0); MCV 101.5 fL (80.0-100.0); MPV 7.5 fl. (7.2-11.1); RBC 2.74 mil/uL (4.20-5.00); RDW-CV 12.6 % (10.5-14.5); WBC 5.3 thou/uL (4.0-11.0)
[2020-07-07 04:59] LABS: INR 1.7; PROTIME 17.5 Seconds (9.20-11.50)
[2020-07-07 05:05] LABS: CALCIUM 8.6 mg/dL (8.5-10.1); CREATININE 0.9 mg/dL (0.6-1.3); POTASSIUM 3.7 mmol/L (3.5-5.1)
[2020-07-07 08:00] VITALS: BP 137/54
[2020-07-07 14:40] VITALS: BP 137/53
[2020-07-07 16:30] VITALS: BP 129/53
[2020-07-07 20:00] VITALS: BP 129/52
[2020-07-08] VITALS: BP 125/46
[2020-07-08 04:00] VITALS: BP 133/53
[2020-07-08 04:29] LABS: CREATININE 0.9 mg/dL (0.6-1.3)
[2020-07-08 04:37] LABS: POTASSIUM 2.7 mmol/L (3.5-5.1)
[2020-07-08 04:55] LABS: INR 1.6; PROTIME 16.8 Seconds (9.20-11.50)
[2020-07-08 08:00] VITALS: BP 131/54
[2020-07-08 08:42] LABS: ABSOLUTE EOSINOPHILS 0.1 thou/uL (0.0-0.7); ABSOLUTE LYMPHOCYTES 0.5 thou/uL (0.8-5.3); ABSOLUTE MONOCYTES 0.5 thou/uL (0.0-1.2); ABSOLUTE NEUTROPHILS 3.3 thou/uL (1.6-8.1); BASOPHILS 0.8 %; EOSINOPHILS 1.5 %; HEMATOCRIT 28.5 % (37.0-47.0); HEMOGLOBIN 9.5 gm/dL (12.0-15.0); LYMPHOCYTES 11.2 %; MCH 34.1 pg (26.0-34.0); MCHC 33.5 g/dL (28.0-37.0); MCV 101.7 fL (80.0-100.0); MONOCYTES 11.1 %; MPV 7.3 fl. (7.2-11.1); NUCLEATED RBCS 0 /100WBC; PLATELET COUNT* 109 thou/uL (150-400); POLYS 75.4 %; RDW-CV 12.6 % (10.5-14.5); WBC 4.4 thou/uL (4.0-11.0)
[2020-07-08 08:55] LABS: CALCIUM 8.3 mg/dL (8.5-10.1); CREATININE 0.8 mg/dL (0.6-1.3); POTASSIUM 3.1 mmol/L (3.5-5.1)
[2020-07-09 04:00] VITALS: BP 128/50
[2020-07-09 04:51] LABS: INR 1.6; PROTIME 16.6 Seconds (9.20-11.50)
[2020-07-09 04:57] LABS: CREATININE 0.8 mg/dL (0.6-1.3)
[2020-07-09 04:58] LABS: POTASSIUM 2.9 mmol/L (3.5-5.1)
[2020-07-09 08:18] VITALS: BP 132/79
[2020-07-09 12:00] VITALS: BP 117/45
[2020-07-09 16:00] VITALS: BP 110/47
[2020-07-09 20:25] VITALS: BP 122/51
[2020-07-10 00:39] VITALS: BP 101/59
[2020-07-10 04:55] VITALS: BP 100/55
[2020-07-10 05:53] LABS: ABSOLUTE EOSINOPHILS 0.1 thou/uL (0.0-0.7); ABSOLUTE LYMPHOCYTES 0.7 thou/uL (0.8-5.3); ABSOLUTE MONOCYTES 0.5 thou/uL (0.0-1.2); ABSOLUTE NEUTROPHILS 2.7 thou/uL (1.6-8.1); EOSINOPHILS 2.6 %; HEMATOCRIT 26.2 % (37.0-47.0); HEMOGLOBIN 8.9 gm/dL (12.0-15.0); LYMPHOCYTES 17.8 %; MCH 34.1 pg (26.0-34.0); MCHC 33.8 g/dL (28.0-37.0); MCV 100.6 fL (80.0-100.0); MONOCYTES 12.9 %; MPV 7.6 fl. (7.2-11.1); NUCLEATED RBCS 0 /100WBC; PLATELET COUNT* 115 thou/uL (150-400); POLYS 65.7 %; RBC 2.61 mil/uL (4.20-5.00); RDW-CV 12.4 % (10.5-14.5); WBC 4.2 thou/uL (4.0-11.0)
[2020-07-10 06:14] LABS: CALCIUM 8.5 mg/dL (8.5-10.1); CREATININE 0.9 mg/dL (0.6-1.3); POTASSIUM 3.3 mmol/L (3.5-5.1)
[2020-07-10 06:58] VITALS: BP 114/46
[2020-07-10 07:15] LABS: INR 1.6; PROTIME 16.6 Seconds (9.20-11.50)
[2020-07-10 08:00] VITALS: BP 123/48
[2020-07-10 12:00] VITALS: BP 106/76
[2020-07-10 16:00] VITALS: BP 114/45
[2020-07-11 00:25] VITALS: BP 105/41
[2020-07-11 05:57] LABS: INR 1.5; PROTIME 15.6 Seconds (9.20-11.50)
[2020-07-11 08:23] VITALS: BP 130/51
[2020-07-11] MEDS ORDERED: BUMEX2 MG PO (08:35)
[2020-07-11 12:51] VITALS: BP 116/51
[2020-07-11 17:42] VITALS: BP 130/46
[2020-07-11 20:00] VITALS: BP 135/54
[2020-07-12] VITALS: BP 114/33
[2020-07-12 04:15] VITALS: BP 118/46
[2020-07-12 08:00] VITALS: BP 133/58
[2020-07-12 08:40] LABS: ABSOLUTE EOSINOPHILS 0.1 thou/uL (0.0-0.7); ABSOLUTE LYMPHOCYTES 0.6 thou/uL (0.8-5.3); ABSOLUTE MONOCYTES 0.3 thou/uL (0.0-1.2); ABSOLUTE NEUTROPHILS 2.4 thou/uL (1.6-8.1); BASOPHILS 1.1 %; EOSINOPHILS 3.8 %; HEMATOCRIT 28.1 % (37.0-47.0); HEMOGLOBIN 9.5 gm/dL (12.0-15.0); MCH 33.7 pg (26.0-34.0); MCHC 33.8 g/dL (28.0-37.0); MCV 99.8 fL (80.0-100.0); MONOCYTES 9.4 %; MPV 6.9 fl. (7.2-11.1); NUCLEATED RBCS 0 /100WBC; PLATELET COUNT* 126 thou/uL (150-400); POLYS 68.7 %; RBC 2.81 mil/uL (4.20-5.00); RDW-CV 12.2 % (10.5-14.5); WBC 3.5 thou/uL (4.0-11.0)
[2020-07-12 08:45] LABS: CALCIUM 8.7 mg/dL (8.5-10.1); CREATININE 0.8 mg/dL (0.6-1.3); POTASSIUM 3.5 mmol/L (3.5-5.1)
[2020-07-12 08:47] LABS: INR 1.6; PROTIME 16.1 Seconds (9.20-11.50)
[2020-07-12 12:00] VITALS: BP 115/62
[2020-07-12] MEDS ORDERED: BUMETANIDE 1 MG1 M1 PO (13:10)
--- NOTE | 2020-07-12 13:47 | EKG ---
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: [email or web address] : 1930 Requested By: Leelee Khalil Order Number: [id number] MD: Sidney Stanford Measurements Intervals [place] Rate: 60 P: 0 NE: 568 QRS: -62 QRSD: 182 T: 106 QT: 514 QTc: 514 Interpretive Statements Ventricular-paced rhythm No further analysis attempted due to paced rhythm Compared to ECG 07/05/2020 11:06:24 No significant changes Electronically Signed On 07-12-2020 13:46:58 CDT by Sidney Stanford [email or web address] <ELECTRONICALLY SIGNED> By: Sidney Stanford MD, [facility] 07/12/20 1346 0652 0652 Sidney Stanford MD, [facility] /EPI
[2020-07-12] MEDS ORDERED: JANTOVEN5 MG PO (14:41)
[2020-07-12 16:38] VITALS: BP 115/62
== END 2020-07-12 15:55 | disposition home health service (06) | DRG 602 ==
LOC: M.ERS 10:11 → M.TBA-ER 11:19 → M.2W 11:19 → M.TBA 15:02 → M.2W 15:03
PROVIDERS: Internal Medicine; Nurse Practitioner Family; Registered Nurse; ADMIT Internal Medicine; ATTEND Internal Medicine
PROC: 02HV33Z Insertion of Infusion Device into Superior Vena Cava, Percutaneous Approach (ICD-10-PCS; principal; 2020-07-06)
PROC: B548ZZA Ultrasonography of Superior Vena Cava, Guidance (ICD-10-PCS; principal; 2020-07-06)
DX: L03.116 Cellulitis of left lower limb (principal); I50.43 Acute on chronic combined systolic (congestive) and diastolic (congestive) heart failure; E87.1 Hypo-osmolality and hyponatremia; I13.0 Hypertensive heart and chronic kidney disease with heart failure and stage 1 through stage 4 chronic kidney disease, or unspecified chronic kidney disease; I42.9 Cardiomyopathy, unspecified; D68.69 Other thrombophilia; I48.20 Chronic atrial fibrillation, unspecified; L03.115 Cellulitis of right lower limb; E78.5 Hyperlipidemia, unspecified; K21.9 Gastro-esophageal reflux disease without esophagitis; N18.30 Chronic kidney disease, stage 3 unspecified; I49.5 Sick sinus syndrome; D64.9 Anemia, unspecified; F41.9 Anxiety disorder, unspecified; E87.6 Hypokalemia; Z20.822 Contact with and (suspected) exposure to COVID-19; Z95.0 Presence of cardiac pacemaker; Z88.1 Allergy status to other antibiotic agents; Z90.49 Acquired absence of other specified parts of digestive tract; Z88.2 Allergy status to sulfonamides; Z79.899 Other long term (current) drug therapy; Z88.8 Allergy status to other drugs, medicaments and biological substances; Z86.73 Personal history of transient ischemic attack (TIA), and cerebral infarction without residual deficits